=== PATIENT | female | born 1980 | race Caucasian/White ===

== ENCOUNTER 2020-02-15 08:41 | Outpatient (REF) | payer OTHER, SELFPAY | END 2020-02-15 08:42 | disposition home or self-care (01) | LOC: HO.LAB 08:41 | PROVIDERS: PCP Internal Medicine; Visit Provider Internal Medicine | DX: Z20.828 Contact with and (suspected) exposure to other viral communicable diseases (principal) | CPT/HCPCS: C9803; U0003 ==

== ENCOUNTER → 2022-03-18 10:08 | Outpatient (BNVA) | payer OTHER, SELFPAY | PROVIDERS: Visit Provider Nurse Practitioner Family | DX: G43.909 Migraine, unspecified, not intractable, without status migrainosus (principal); H53.129 Transient visual loss, unspecified eye; R41.3 Other amnesia; R42 Dizziness and giddiness | CPT/HCPCS: 99202 ==

== ENCOUNTER → 2022-06-20 11:01 | Outpatient (BNVA) | payer SELFPAY | PROVIDERS: Visit Provider Nurse Practitioner Family | DX: G43.909 Migraine, unspecified, not intractable, without status migrainosus (principal); H53.129 Transient visual loss, unspecified eye | CPT/HCPCS: 99212 ==

== ENCOUNTER 2022-11-13 11:34 | Outpatient (AMB) | payer SELFPAY ==
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
[2022-11-13 11:46] VITALS: BP 120/80; PULSE 88; O2SAT 98; BMI 37.1
== END 2022-11-13 12:35 | disposition home or self-care (01) ==
PROVIDERS: Visit Provider Nurse Practitioner Family
DX: R25.2 Cramp and spasm (principal); R45.1 Restlessness and agitation; G43.909 Migraine, unspecified, not intractable, without status migrainosus
CPT/HCPCS: 99214

== ENCOUNTER → 2022-11-13 11:34 | Outpatient (BNVA) | payer OTHER, SELFPAY | PROVIDERS: Visit Provider Nurse Practitioner Family ==

== ENCOUNTER 2022-12-27 09:27 | Outpatient (REF) | payer OTHER, SELFPAY ==
--- NOTE | 2022-12-27 09:31 | EMG_ITS ---
Chief complaint: Leg cramps Reason for referral: Evaluate for neuropathy versus radiculopathy Referred by: Rayne Villafana NP Procedure done: Bilateral lower extremity NCS/EMG Precautions and/or limitations: None The limb temperature was monitored continuously and remained between 32-36 degrees C during the performance of the NCS. FINDINGS: All motor and sensory nerves tested showed normal latencies, amplitudes and conduction velocities. Concentric needle EMG was performed in selected muscles of the bilateral lower extremity. Study did not reveal signs of electric abnormalities as shown in the table below. Nerve Conduction Studies Anti Sensory Summary Table ?Stim Site NR Onset (ms) Norm Onset (ms) Peak (ms) Norm Peak (ms) O-P Amp (?V) Norm O-P Amp Site1 Site2 Delta-0 (ms) Dist (cm) Audi (m/s) Norm Audi (m/s) Left Sural Anti Sensory (Lat Mall) Calf ? 2.6 3.0 <4.0 5.1 >5.0 Calf Lat Mall 2.6 14.0 54 Right Sural Anti Sensory (Lat Mall) Calf ? 2.6 3.1 <4.0 11.5 >5.0 Calf Lat Mall 2.6 14.0 54 Motor Summary Table ?Stim Site NR Onset (ms) Norm Onset (ms) O-P Amp (mV) Norm O-P Amp iAmp (mV) Amp (1st) (%) Site1 Site2 Delta-0 (ms) Dist (cm) Audi (m/s) Norm Audi (m/s) Left Peroneal Motor (Ext Dig Brev) Ankle ? 4.0 <4.0 5.2 >2.5 7.1 100.0 Ankle Ext Dig Brev 4.0 0.0 B Fib ? 10.7 4.9 6.7 94.2 B Fib Ankle 6.7 35.0 52 >40 Poplt ? 11.0 4.9 6.6 94.2 Poplt B Fib 0.3 4.0 133 >40 Right Peroneal Motor (Ext Dig Brev) Ankle ? 3.8 <4.0 4.1 >2.5 4.8 100.0 Ankle Ext Dig Brev 3.8 0.0 B Fib ? 10.3 3.6 4.3 87.8 B Fib Ankle 6.5 34.0 52 >40 Poplt ? 11.0 3.7 4.4 90.2 Poplt B Fib 0.7 4.0 57 >40 Left Tibial Motor (Abd Iyer Brev) Ankle ? 4.9 <5 6.5 >2.5 9.0 100.0 Ankle Abd Iyer Brev 4.9 0.0 Knee ? 10.6 2.9 4.3 44.6 Knee Ankle 5.7 37.0 65 >40 Right Tibial Motor (Abd Iyer Brev) Ankle ? 4.8 <5 8.8 >2.5 11.5 100.0 Ankle Abd Iyer Brev 4.8 0.0 Knee ? 12.3 4.5 6.1 51.1 Knee Ankle 7.5 32.0 43 >40 EMG ?Side Muscle Nerve Root Ins Act Fibs Psw Amp Dur Poly Recrt Int Pat Comment Right AbdHallucis MedPlantar S1-2 Nml Nml Nml Nml Nml 0 Nml Complete Right AntTibialis Dp Br Peron L4-5 Nml Nml Nml Nml Nml 0 Nml Complete Right PostTibialis Tibial L5, S1 Nml Nml Nml Nml Nml 0 Nml Complete Right MedGastroc Tibial S1-2 Nml Nml Nml Nml Nml 0 Nml Complete Right VastusMed Femoral L2-4 Nml Nml Nml Nml Nml 0 Nml Complete Left AbdHallucis MedPlantar S1-2 Nml Nml Nml Nml Nml 0 Nml Complete Left AntTibialis Dp Br Peron L4-5 Nml Nml Nml Nml Nml 0 Nml Complete Left PostTibialis Tibial L5, S1 Nml Nml Nml Nml Nml 0 Nml Complete Left MedGastroc Tibial S1-2 Nml Nml Nml Nml Nml 0 Nml Complete Left VastusMed Femoral L2-4 Nml Nml Nml Nml Nml 0 Nml Complete IMPRESSION: 1. This is a normal study. 2. There is no electrodiagnostic evidence for peroneal neuropathy, tibial neuropathy, lumbosacral plexopathy, lumbar radiculopathy, or peripheral neuropathy. Thank you for your kind referral. Moraima Rojas MD, CARIN Board Certified, [place] [employer] and Rehabilitation (ABPMR) Board Certified, [place] Board [employer] Electrodiagnostic Medicine (ABEM) CODIN 79008 x2 MTDD
== END 2022-12-27 09:28 | disposition home or self-care (01) ==
LOC: HO.NEURO 09:27
PROVIDERS: PCP Internal Medicine; Visit Provider Nurse Practitioner Family
DX: R25.2 Cramp and spasm (principal); R45.1 Restlessness and agitation
CPT/HCPCS: 95886; 95909

== ENCOUNTER → 2022-12-27 09:31 | Outpatient (BNV) | payer SELFPAY | PROVIDERS: PCP Internal Medicine; Visit Provider Physical Medicine & Rehabilitation | DX: R25.2 Cramp and spasm (principal) | CPT/HCPCS: 95886; 95909 ==

== ENCOUNTER → 2023-01-21 13:03 | Outpatient (BNVA) | payer SELFPAY | PROVIDERS: PCP Internal Medicine; Visit Provider Nurse Practitioner Family ==

== ENCOUNTER 2023-04-17 10:39 | Outpatient (AMB) | payer OTHER, SELFPAY ==
[2023-04-17 11:07] VITALS: PULSE 80; O2SAT 98; BMI 37.4
--- NOTE | 2023-04-17 11:07 | A.OFFVIS_ITS ---
Intake Vital Signs 04/17/23 11:07 Height 5 ft 7 in Weight 239 lb BMI 37.4 Pulse 80 Pulse Source Pulse Oximeter Pulse Oximetry (%) 98 Oxygen Delivery Method Room Air Intake Visit Reasons: Follow up-Conf Intake Note: Patient presents for follow up. Allergies onion Allergy (Severe, Verified 04/17/23 11:18) Anaphylaxis animal dander Allergy (Mild, Verified 04/17/23 11:18) Watery Eye house dust Allergy (Mild, Verified 04/17/23 11:18) Sneezing Medication List - Last Reconciled 04/17/23 by MAHIN Harrell cetirizine (Allergy Relief (cetirizine)) 10 mg PO DAILY PRN diclofenac sodium 3% 1 appl topical BID PRN 30 days eletriptan take 1 tab at onset of headache; if no relief, may repeat 1 tab after at least 2 hrs; max = 2 tabs/24 hrs orally PRN; 30 days epinephrine 0.3 mg IM Q4H PRN galcanezumab-gnlm (Emgality Pen) 120 mg subcut ONCE 30 days magnesium gluconate 30 mg PO DAILY 30 days wtxtfodaopzh-vhur-pnktd acid 18-400 mg-mcg (Centrum Women) 1 tab PO DAILY rizatriptan 5 - 10 mg (0.5 - 1 x 10 mg) PO Q2H PRN 21 days sumatriptan succinate 50 - 100 mg orally at onset of headache, may repeat in 2 hrs PRN; max 2 tabs per day or 4 tabs/week (may take with Naproxen or Ibuprofen) 60 days HPI HPI Comments History of Present Illness Details 43-yr-old female presents for f/u visit of migraine. Since fito last visit, we started pt on Emgality, which had been effective. However, recently pt had a COVID-19 infection, her only symptoms were a more atypical bothersome headache. Since, she has very tired and exhausted. She has been having daily migraine, worse in the afternnon. The migraine causes her to miss work and not be able to take care of or drive her 5 yr-old to school. She asks for her 's [place] paperwork to be updated to reflect her increased migraine attack frequency. She does not have any rizatriptan at this time, states pharmacy was requesting higher than usual co-pay. Rizatriptan helps to take the edge off, but does not fully ursula migraine. Baseline headache characteristics: Severe, Holocranial throbbing, needle stabbing headache a/w bilateral vision goes black (At onset of headache), photophobia, phonophobia, nausea, rarely vomiting, holocranial allodynia, fatigue, brain fog, not right in space dizziness. No autonomic, paresthesias, or focal weakness. PFSH Family History Mother Hypertension Asthma Diabetes Father Diabetes Hypertension Sister Hypertension Alcoholism Depression Asthma Memory loss Anemia Unknown Breast cancer Unknown Breast cancer Social History Alcohol intake: never Patient Tobacco Use Status: Never used Tobacco Physical Exam Vital Signs: Last Vital Signs Pulse 80 04/17/23 11:07 Pulse Ox 98 04/17/23 11:07 Oxygen Delivery Method Room Air 04/17/23 11:07 BMI result Body Mass Index 37.4 Const General: cooperative and no acute distress Orientation/consciousness: patient oriented x3 Resp Effort & Inspection: normal respiratory effort and able to speak in complete sentences Neuro General: patient oriented x3 Cranial nerves: Yes CN's II-XII intact bilaterally Cognition (Neuro): normal cognition Psych Appearance: grossly normal Mental Status: mental status grossly normal Speech and movement: Normal speech and movement present Affect: normal affect Attitude: cooperative Assessment & Plan Assessment & Plan (1) Migraine with aura: Comment: vision loss Code(s): G43.109 - Migraine with aura, not intractable, without status migrainosus (2) Transient visual loss: Code(s): H53.129 - Transient visual loss, unspecified eye Plan [facility] paperwork completed. For acute headache treatment: Strat Prednisone taper, taken w/ food in am. w/ Omeprazole 20mg qd. Continue Rizatriptan prn. Trial Nurtec ODT 75mg qd prn, as Rizatriptan is not fully effective. Previous acute migraine medication trials: Advil and low-dose Sumatriptan- not full effective. Acute migraine medication contraindications: None at this time ? For headache prevention medication: Continue Emgality 120mg sc q month. Previous migraine prevention medication trials: Amitriptyline- not tolerated. Topiramate- not tolerated. Mag Ox- caused constipation. B2- not effective. Propranolol 10mg bid- ineffective Migraine prevention medication contraindications: None at this time. For BLE L >R restlessness, cramps/spasms which are worse at rest, especially at night: Magnesium gluconate 550mg qhs. May use melatonin prn Reviewed BLE EMG/NCS- normal Future considerations- sleep study to assess for PLMS. ? Follow-up in 3 months or sooner prn. Medications: New prednisone 6 tabs x's 3 days, 5 tabs x's 3 days, 4 tabs x's 3 days, 3 tabs x's 3 days, 2 tabs x's 3 days, 1 tab x's 3 days, then stop. orally daily; 21 days 63 tabs 0RF omeprazole 20 mg PO DAILY 30 days 30 caps 1RF rimegepant (Nurtec ODT) 1 tab placed under tongue at onset of migraine, max 1 tab per day 75 mg PO ONCE 30 days PRN 16 tabs 3RF migraine headache MDD 1 tab Refilled rizatriptan max 2 tabs per day or 4 tabs per week 5 - 10 mg (0.5 - 1 x 10 mg) PO Q2H 21 days PRN 12 tabs 3RF migraine headache Discontinued sumatriptan succinate Discontinued Reason: Doctor's Order (0.5 - 1 x 100 mg) 50 - 100 mg orally at onset of headache, may repeat in 2 hrs PRN; max 2 tabs per day or 4 tabs/week (may take with Naproxen or Ibuprofen) 60 days 60 tabs 6RF migraine headache eletriptan Discontinued Reason: Doctor's Order take 1 tab at onset of headache; if no relief, may repeat 1 tab after at least 2 hrs; max = 2 tabs/24 hrs orally PRN; 30 days 12 tabs 3RF migraine headache Coding Level of Care Code Est Pt Level 4 (90410) Diagnoses Migraine with aura G43.109 Transient visual loss H53.129
== END 2023-04-17 11:57 | disposition home or self-care (01) ==
PROVIDERS: PCP Internal Medicine; Visit Provider Nurse Practitioner Family
DX: G43.109 Migraine with aura, not intractable, without status migrainosus (principal); H53.129 Transient visual loss, unspecified eye
CPT/HCPCS: 99214

== ENCOUNTER → 2023-04-17 10:39 | Outpatient (BNVA) | payer OTHER, SELFPAY | PROVIDERS: PCP Internal Medicine; Visit Provider Nurse Practitioner Family ==

== ENCOUNTER 2023-05-29 10:25 | Outpatient (AMB) | payer OTHER, SELFPAY ==
--- NOTE | 2023-05-29 10:26 | A.OFFVIS_ITS ---
Intake Vital Signs 05/29/23 10:31 Height 5 ft 7 in Weight 239 lb BMI 37.4 BP 112/80 Blood Pressure Location Rt brachial Position Sitting Pulse 95 Pulse Source Pulse Oximeter Pulse Oximetry (%) 100 Oxygen Delivery Method Room Air Intake Visit Reasons: Follow Up Intake Note: Patient presents for follow up. migraines still happening I couldn't wait for August visit to see her again Allergies onion Allergy (Severe, Verified 05/29/23 10:34) Anaphylaxis animal dander Allergy (Mild, Verified 05/29/23 10:34) Watery Eye house dust Allergy (Mild, Verified 05/29/23 10:34) Sneezing Medication List - Last Reconciled 05/29/23 by MAHIN Harrell cetirizine (Allergy Relief (cetirizine)) 10 mg PO DAILY PRN diclofenac sodium 3% 1 appl topical BID PRN 30 days epinephrine 0.3 mg IM Q4H PRN galcanezumab-gnlm (Emgality Pen) 120 mg subcut ONCE 30 days magnesium gluconate 30 mg PO DAILY 30 days akgozauontfn-juks-uuoqo acid 18-400 mg-mcg (Centrum Women) 1 tab PO DAILY omeprazole 20 mg PO DAILY 30 days prednisone 6 tabs x's 3 days, 5 tabs x's 3 days, 4 tabs x's 3 days, 3 tabs x's 3 days, 2 tabs x's 3 days, 1 tab x's 3 days, then stop. orally daily; 21 days rimegepant (Nurtec ODT) 75 mg PO ONCE PRN 30 days MDD 1 tab rizatriptan 5 - 10 mg (0.5 - 1 x 10 mg) PO Q2H PRN 21 days HPI HPI Comments History of Present Illness Details 43-yr-old female presents for f/u visit. Pt denies any significant interval medical changes. She has had a daily headache x's the past 2 weeks. This is similar to the headache she was experiencing after the Covid-19 infection in Mar, but is now worse. She is feeling a right ear constant pulsation. Initially this was not painful, but not the pulsation has become throbbing pain in the right lateral occipital post-auricular region. A/w increased nausea and fatigue. Right lateral head tilt does suppress the ear pulsations. Pressing on the right occipital/posterior auricular region temporarily alleviates the pain. Wearing her hair down- causes the pounding pain to worsen. She has tried all of her migraine meds- Rizatriptan, Eletriptan, Nurtec, Ibuprofen did not help. She has been having new horizontal diplopia She has not noticed any visual acuity changes, dizziness in between migraine attacks. Denies recent weight gain. No change in meds, diet, exercise. Yesterday, she had her typical migraine on top of this other new headache. She did use a melatonin to make herself sleep. She is overdue for the Emgality- was due on 05/21- but there is an issue at the pharmacy using her co-pay access card. Baseline migraine headache characteristics: Severe, Holocranial throbbing, needle stabbing headache a/w bilateral vision goes black (At onset of headache), photophobia, phonophobia, nausea, rarely vomiting, holocranial allodynia, fatigue, brain fog, not right in space dizziness. No autonomic, paresthesias, or focal weakness. PFSH Family History Mother Hypertension Asthma Diabetes Father Diabetes Hypertension Sister Hypertension Alcoholism Depression Asthma Memory loss Anemia Unknown Breast cancer Unknown Breast cancer Social History Alcohol intake: never Patient Tobacco Use Status: Never used Tobacco Physical Exam Vital Signs: Last Vital Signs Pulse 95 05/29/23 10:31 BP 112/80 05/29/23 10:31 Pulse Ox 100 05/29/23 10:31 Oxygen Delivery Method Room Air 05/29/23 10:31 BMI result Body Mass Index 37.4 Const General: cooperative and no acute distress Orientation/consciousness: patient oriented x3 Resp Effort & Inspection: normal respiratory effort and able to speak in complete sentences Neuro Other: Palpable tenderness over entire right side of head and neck. Right Ear tug/pull does not change pain or tinnitus. Bilateral posterior and dlateral cervical tightness- note this is not significantly worse on right. CN II-XII intcat, w/ exception of horizontal diplopia elicited in bilateral lateral visual field. EOM elicits eye discomfort. 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 Eye exam-normal As pt is having new severe headache type and location (right post-auricular na doccipital) a/w pulsating tinnitus, diplopia, allodynia insetting of known intracranial bilateral transverse pacchionian granulations, pt is advised to undergo: F/u brain MRI and MRV w/wo LP for OP and CSF studies- after MRI completed- reviewed post-LP care- rest, fluids, caffeine, prn Fioricet. Check labs. Future considerations- Head/neck CTA For now- start Acetazolamide 125-250mg tid- pt to update us w/ any change in LINN or s/e's. For acute headache treatment: May use Sumatriptan 100mg prn for now- as pt has run out of current abortive tx. Continue Rizatriptan prn. Continue Nurtec ODT 75mg qd prn- which is effective for migraine. Previous acute migraine medication trials: Advil and low-dose Sumatriptan- not full effective. Acute migraine medication contraindications: None at this time ? For headache prevention medication: Continue Emgality 120mg sc q month. Previous migraine prevention medication trials: Amitriptyline- not tolerated. Topiramate- not tolerated. Mag Ox- caused constipation. B2- not effective. Propranolol 10mg bid- ineffective Migraine prevention medication contraindications: None at this time. ? For BLE L >R restlessness, cramps/spasms which are worse at rest, especially at night: Magnesium gluconate 550mg qhs. May use melatonin prn Reviewed BLE EMG/NCS- normal Future considerations- sleep study to assess for PLMS. ? Follow-up in 3 months or sooner prn. Orders: Orders FL guided lumbar puncture LP Today H53.2 - Diplopia, H93.19 - Tinnitus, unspecified ear, I87.1 - Compression of vein, R51.9 - Headache, unspecified Comprehensive Met. Panel Today H53.2 - Diplopia, H93.19 - Tinnitus, unspecified ear, I87.1 - Compression of vein, R25.2 - Cramp and spasm, R51.9 - Headache, unspecified Complete Blood Count Auto Diff Today H53.2 - Diplopia, H93.19 - Tinnitus, unspecified ear, I87.1 - Compression of vein, R25.2 - Cramp and spasm, R51.9 - Headache, unspecified Erythrocyte Sedimentation Rate Today H53.2 - Diplopia, H93.19 - Tinnitus, unspecified ear, I87.1 - Compression of vein, R25.2 - Cramp and spasm, R51.9 - Headache, unspecified Rheumatoid Factor Today H53.2 - Diplopia, H93.19 - Tinnitus, unspecified ear, I87.1 - Compression of vein, R25.2 - Cramp and spasm, R51.9 - Headache, unspecified Vitamin B12 and Folate Today H53.2 - Diplopia, H93.19 - Tinnitus, unspecified ear, I87.1 - Compression of vein, R25.2 - Cramp and spasm, R51.9 - Headache, unspecified TSH reflex Free T4 Today H53.2 - Diplopia, R51.9 - Headache, unspecified, R53.83 - Other fatigue CSF Culture + Gram stain Today H53.2 - Diplopia, H93.19 - Tinnitus, unspecified ear, R51.9 - Headache, unspecified, R53.83 - Other fatigue CSF Glucose Today H53.2 - Diplopia, H93.19 - Tinnitus, unspecified ear, R51.9 - Headache, unspecified, R53.83 - Other fatigue Meningitis/Enceph Panel CSF Today H53.2 - Diplopia, H93.19 - Tinnitus, unspecified ear, R51.9 - Headache, unspecified, R53.83 - Other fatigue VDRL Qualitative CSF Today H53.2 - Diplopia, H93.19 - Tinnitus, unspecified ear, R51.9 - Headache, unspecified, R53.83 - Other fatigue MR head/brain wo/w con Today H53.2 - Diplopia, H93.19 - Tinnitus, unspecified ear, I87.1 - Compression of vein, R51.9 - Headache, unspecified MR venography head wo/w con Today H53.2 - Diplopia, H93.19 - Tinnitus, unspecified ear, I87.1 - Compression of vein, R51.9 - Headache, unspecified CRP High Sensitivity Today H53.2 - Diplopia, H93.19 - Tinnitus, unspecified ear, I87.1 - Compression of vein, R25.2 - Cramp and spasm, R51.9 - Headache, unspecified Lyme IgG/IgM w/reflex to WB Today H53.2 - Diplopia, H93.19 - Tinnitus, unspecified ear, I87.1 - Compression of vein, R25.2 - Cramp and spasm, R51.9 - Headache, unspecified BRENNA Reflex Titer and Pattern Today H53.2 - Diplopia, H93.19 - Tinnitus, unspecified ear, I87.1 - Compression of vein, R25.2 - Cramp and spasm, R51.9 - Headache, unspecified CSF Cell Count w Diff Today H53.2 - Diplopia, H93.19 - Tinnitus, unspecified ear, R51.9 - Headache, unspecified, R53.83 - Other fatigue CSF Cell Ct w Diff X2 Today H53.2 - Diplopia, H93.19 - Tinnitus, unspecified ear, R51.9 - Headache, unspecified, R53.83 - Other fatigue CSF Total Protein Today H53.2 - Diplopia, H93.19 - Tinnitus, unspecified ear, R51.9 - Headache, unspecified, R53.83 - Other fatigue IgG Index CSF Today H53.2 - Diplopia, H93.19 - Tinnitus, unspecified ear, R51.9 - Headache, unspecified, R53.83 - Other fatigue Lyme by PCR for CSF Today H53.2 - Diplopia, H93.19 - Tinnitus, unspecified ear, R51.9 - Headache, unspecified, R53.83 - Other fatigue Medications: New acetazolamide 125 - 250 mg (1 - 2 x 125 mg) PO TID 7 days 63 tabs 0RF sumatriptan succinate (0.5 - 1 x 100 mg) 50 - 100 mg orally at onset of headache, may repeat in 2 hrs PRN; max 2 tabs per day. 30 days 30 tabs 0RF migraine headache baclofen 10 - 20 mg (1 - 2 x 10 mg) PO BEDTIME 30 days 60 tabs 1RF cnaxtcisyx-knpclmydpdnhi-vwrv 50-325-40 mg max 4 tabs per day (do not take w/ Nurtec) 1 tab PO Q4H PRN 28 tabs 0RF post- LP headache 7 days Discontinued prednisone Discontinued Reason: Patient Completed Course 6 tabs x's 3 days, 5 tabs x's 3 days, 4 tabs x's 3 days, 3 tabs x's 3 days, 2 tabs x's 3 days, 1 tab x's 3 days, then stop. orally daily; 21 days 63 tabs 0RF Coding Level of Care Code Est Pt Level 4 (43013) Diagnoses Tinnitus H93.19 New onset headache R51.9 Diplopia H53.2 Vein stenosis I87.1 Fatigue R53.83
[2023-05-29 10:31] VITALS: BP 112/80; PULSE 95; O2SAT 100; BMI 37.4
== END 2023-05-29 11:38 | disposition home or self-care (01) ==
PROVIDERS: PCP Internal Medicine; Visit Provider Nurse Practitioner Family
DX: H93.19 Tinnitus, unspecified ear (principal); R51.9 Headache, unspecified; H53.2 Diplopia; I87.1 Compression of vein; R53.83 Other fatigue
CPT/HCPCS: 99214

== ENCOUNTER → 2023-05-29 10:25 | Outpatient (BNVA) | payer OTHER, SELFPAY | PROVIDERS: PCP Internal Medicine; Visit Provider Nurse Practitioner Family ==

== ENCOUNTER 2023-05-29 11:40 | Outpatient (REF) | payer OTHER, SELFPAY ==
[2023-05-29 17:24] LABS: MANUAL DIFF FLAG NO
[2023-05-29 17:28] LABS: Basophils Percent Auto 0.8 % (0-2); Eosinophils Percent Auto 0.4 % (0-4); Hematocrit 36.2 % (37.0-47.0); Hemoglobin 12.6 g/dl (12.0-16.0); Imm Gran Abs Auto 0.01 X10*3/uL (0.00-0.03); Imm Gran Pct Auto 0.2 % (0.0-0.4); Lymphocytes Percent Auto 20.7 % (20-40); Mean Corpuscular HGB Conc 34.8 g/dl (31.0-35.0); Mean Corpuscular Hemoglobin 29.9 pg (27.0-33.0); Mean Corpuscular Volume 85.8 fL (80.0-98.0); Mean Platelet Volume 9.5 fL (9.4-12.3); Monocytes Absolute Auto 0.5 X10*3/uL (0.1-1.2); Monocytes Percent Auto 10.2 % (2-11); Neutrophils Absolute Auto 3.3 x10*3/uL (2.0-8.3); Neutrophils Percent Auto 67.7 % (45-73); Platelet Count 340 X10*3/uL (160-400); Red Blood Count 4.22 X10*6/uL (4.20-5.50); Red Cell Distribution Width 13.1 % (11.0-16.0); White Blood Count 4.9 X10*3/uL (4.8-10.8)
[2023-05-29 17:45] LABS: Rheumatoid Factor < 13.0 IU/mL (<15.0)
[2023-05-29 17:50] LABS: Alanine Aminotransferase 14 U/L (0-31); Alkaline Phosphatase 79 U/L (39-117); Anion Gap 11 (12-20); Aspartate Amino Transferase 18 U/L (5-31); Bilirubin Total 0.3 mg/dL (0.0-1.0); Blood Urea Nitrogen 11 mg/dL (9-16); Calcium 8.8 mg/dL (8.4-10.2); Carbon Dioxide 26 mmol/L (22-29); Chloride 104 mmol/L (96-108); Estimated Glomerular Filt Rate > 60; Glucose Random 82 mg/dL (60-115); Potassium 3.5 mmol/L (3.3-5.1); Sodium 137 mmol/L (135-145); Total Protein 7.8 g/dL (6.5-8.0)
[2023-05-29 18:03] LABS: TSH reflex Free T4 0.35 uIU/mL (0.32-4.0)
[2023-05-29 18:14] LABS: Folate 14.6 ng/mL (> or = 4.0); Vitamin B12 437 pg/mL (200-900)
[2023-05-29 18:15] LABS: Erythrocyte Sedimentation Rate 23 MM/HR (0-20)
[2023-05-30 13:03] LABS: Lyme Abs Screen <0.90 index
[2023-05-30 13:48] LABS: CRP High Sensitivity >10.0 mg/L
[2023-06-03 15:13] LABS: Anti Nuclear Antibody Pattern Nuclear, Speckled; Anti Nuclear Antibody Screen POSITIVE (NEGATIVE)
== END 2023-05-29 11:41 | disposition home or self-care (01) ==
LOC: HO.HKASLDS 11:40
PROVIDERS: Visit Provider Nurse Practitioner Family
DX: R51.9 Headache, unspecified (principal); H53.2 Diplopia; H93.19 Tinnitus, unspecified ear; I87.1 Compression of vein; R25.2 Cramp and spasm; R53.83 Other fatigue
CPT/HCPCS: 36415; 80053; 82607; 82746; 84443; 85025; 85652; 86038; 86039; 86141; 86431; 86617; 86618

== ENCOUNTER 2023-06-03 14:36 | Outpatient (AMB) | payer OTHER, SELFPAY ==
--- NOTE | 2023-06-03 14:50 | MHC.OFFVIS ---
Intake Vital Signs 06/03/23 14:51 Height 5 ft 7 in Weight 239 lb BMI 37.4 BP 112/66 Blood Pressure Location Rt brachial Position Sitting Respiration 17 Pulse 89 Pulse Source Pulse Oximeter Pulse Oximetry (%) 98 Oxygen Delivery Method Room Air Intake Visit Reasons: ER follow up Intake Note: Pt presents for a hospital follow up. Pt states she went into [facility] ED on Friday, with c/o headache, blurry vision, dizziness, fatigue and syncope. The kept her for a 24 hour observation. They performed lab results and an MRI that showed some fluid but not enough for a spine tap . 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 Allergies onion Allergy (Severe, Verified 06/03/23 14:50) Anaphylaxis animal dander Allergy (Mild, Verified 06/03/23 14:50) Watery Eye house dust Allergy (Mild, Verified 06/03/23 14:50) Sneezing Medication List - Last Reconciled 06/03/23 by Mariluz Raymond MD acetazolamide 125 - 250 mg (1 - 2 x 125 mg) PO TID 7 days baclofen 10 - 20 mg (1 - 2 x 10 mg) PO BEDTIME 30 days niqhjzijwm-zkewgrfdotzgc-aquj 50-325-40 mg 1 tab PO Q4H PRN 7 days cetirizine (Allergy Relief (cetirizine)) 10 mg PO DAILY PRN diclofenac sodium 3% 1 appl topical BID PRN 30 days epinephrine 0.3 mg IM Q4H PRN magnesium gluconate 30 mg PO DAILY 30 days ggxpwfnfmwgc-avyw-sfhno acid 18-400 mg-mcg (Centrum Women) 1 tab PO DAILY omeprazole 20 mg PO DAILY 30 days omeprazole magnesium (Prilosec OTC) 40 mg (2 x 20 mg) PO DAILY prednisone 10 mg PO DIRECTED rimegepant (Nurtec ODT) 75 mg PO ONCE PRN 30 days MDD 1 tab rizatriptan 5 - 10 mg (0.5 - 1 x 10 mg) PO Q2H PRN 21 days sumatriptan succinate 50 - 100 mg orally at onset of headache, may repeat in 2 hrs PRN; max 2 tabs per day. 30 days HPI HPI Comments History of Present Illness Details 43-yr-old female presents for urgent f/u visit. she reports a right postauricular pain Jan 2023 which increased after she had Covid in Mar 2023. she says these headaches are different than her usual migraines.They start as a throbbing pain behind her right ear and resolves when she applies pressure. she has photophobia, nausea. she has blurred vision during these headaches . In Jan 2023 these headaches lasted 1 week and after that she had a milder right ear throbbing.SHe had mild COVID In Mar 2023 and since then her right sided throbbing and head pressure have increased along with generalized weakness, blurred vision, feels her right side of her body is weak she missed her last dose of Emgality due on May 21 due to some insurance issues. she went to [facility]- had CTA MRI MRV CT c spine L spine T spine - unremrakable - which were all normal and her headaches were treated with oxycodone. SHe had a near syncope in the ER - says she was made to sit up quickly from supine position. she was dehydrated at that point as well. she denies ear pain but reports a constant throbbing pain in the Right post auricular region. Her double vision is better but she reports blurred vision Baseline migraine headache characteristics: Severe, Holocranial throbbing, needle stabbing headache a/w bilateral vision goes black (At onset of headache), photophobia, phonophobia, nausea, rarely vomiting, holocranial allodynia, fatigue, brain fog, not right in space dizziness. No autonomic, paresthesias, or focal weakness. [facility] Medical History (Updated 06/03/23 @ 15:44 by Mariluz Raymond MD) Pain of postauricular region Family History Mother Hypertension Asthma Diabetes Father Diabetes Hypertension Sister Hypertension Alcoholism Depression Asthma Memory loss Anemia Unknown Breast cancer Unknown Breast cancer Social History Alcohol intake: never Patient Tobacco Use Status: Never used Tobacco Physical Exam Vital Signs: Last Vital Signs Pulse 89 06/03/23 14:51 Resp 17 06/03/23 14:51 BP 112/66 06/03/23 14:51 Pulse Ox 98 06/03/23 14:51 Oxygen Delivery Method Room Air 06/03/23 14:51 BMI result Body Mass Index 37.4 Const General: cooperative and no acute distress Orientation/consciousness: patient oriented x3 Resp Effort & Inspection: normal respiratory effort and able to speak in complete sentences Neuro Other: Palpable tenderness over right mastoid and surround area. No tenderness in right external ear . Right Ear tug/pull does not change pain or tinnitus. Bilateral posterior and dlateral cervical tightness- note this is not significantly worse on right. CN II-XII intcat, w/ exception of horizontal diplopia elicited in bilateral lateral visual field. EOM elicits eye discomfort. General: patient oriented x3 Cognition (Neuro): normal cognition Psych Appearance: grossly normal Mental Status: mental status grossly normal Speech and movement: Normal speech and movement present Affect: normal affect Attitude: cooperative Assessment & Plan Assessment & Plan (1) Pain of postauricular region: Comment: with severe tenderness in right mastoid and fito surrounding area. No fluid levels or evidence of inflammation seen on MRI ? mastoiditis , post viral inflammation ? otitis Code(s): R51.9 - Headache, unspecified (2) Migraine with aura: Comment: vision loss Code(s): G43.109 - Migraine with aura, not intractable, without status migrainosus Plan Reviewed work-up from [facility] Unremarkable CTA braina nd neck MRI - mild nonspecific white matter changes CT C spine L spine T spine unremarkable MRV- normal : Her ESR was mildly elevated to 23 . WBC was normal Urgent ENT referral I will trial her on a tapering course of prednisone starting at 80mg qd for 2 days and tapering it by 1 tab every 2 days Prilosec 40mg qd side effects discussed. Continue other medications. Orders: Referrals Ear/Nose/Throat Referral R51.9 - Headache, unspecified Medications: New prednisone 8tabs per day X 2 day and then decrease by 1 tab every 2 days 10 mg PO DIRECTED 70 tabs 0RF omeprazole magnesium (Prilosec OTC) 40 mg (2 x 20 mg) PO DAILY 60 tabs 0RF Discontinued galcanezumab-gnlm (Emgality Pen) Discontinued Reason: Patient no longer taking 120 mg subcut ONCE 30 days 1 mL 6RF Coding Level of Care Code Est Pt Level 4 (01793) Diagnoses Pain of postauricular region R51.9 Migraine with aura G43.109
[2023-06-03 14:51] VITALS: BP 112/66; PULSE 89; RESP 17; O2SAT 98; BMI 37.4
== END 2023-06-03 16:03 | disposition home or self-care (01) ==
PROVIDERS: PCP Internal Medicine; Visit Provider Psychiatry & Neurology Neurology
DX: R51.9 Headache, unspecified (principal); G43.109 Migraine with aura, not intractable, without status migrainosus
CPT/HCPCS: 99214

== ENCOUNTER → 2023-06-03 14:36 | Outpatient (BNVA) | payer OTHER, SELFPAY | PROVIDERS: PCP Internal Medicine; Visit Provider Psychiatry & Neurology Neurology ==

== ENCOUNTER 2023-07-29 10:56 | Outpatient (AMB) | payer OTHER, SELFPAY ==
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
[2023-07-29 10:58] VITALS: BP 128/76; PULSE 76; O2SAT 98; BMI 37.6
== END 2023-07-29 11:43 | disposition home or self-care (01) ==
PROVIDERS: PCP Internal Medicine; Visit Provider Student in an Organized Health Care Education/Training Program
DX: R76.8 Other specified abnormal immunological findings in serum (principal)
CPT/HCPCS: 99204

== ENCOUNTER 2023-07-29 10:56 | Outpatient (REF) | payer OTHER, SELFPAY ==
[2023-07-29 12:16] LABS: MANUAL DIFF FLAG NO
[2023-07-29 12:32] LABS: Basophils Absolute Auto 0.1 X10*3/uL (0.0-0.2); Basophils Percent Auto 0.7 % (0-2); Eosinophils Absolute Auto 0.1 X10*3/uL (0.0-0.4); Eosinophils Percent Auto 0.7 % (0-4); Hematocrit 36.8 % (37.0-47.0); Hemoglobin 12.6 g/dl (12.0-16.0); Imm Gran Abs Auto 0.02 X10*3/uL (0.00-0.03); Imm Gran Pct Auto 0.3 % (0.0-0.4); Lymphocytes Absolute Auto 1.5 X10*3/uL (1.2-4.9); Lymphocytes Percent Auto 20.5 % (20-40); Mean Corpuscular HGB Conc 34.2 g/dl (31.0-35.0); Mean Corpuscular Hemoglobin 29.9 pg (27.0-33.0); Mean Corpuscular Volume 87.2 fL (80.0-98.0); Mean Platelet Volume 9.2 fL (9.4-12.3); Monocytes Absolute Auto 0.7 X10*3/uL (0.1-1.2); Monocytes Percent Auto 9.2 % (2-11); Neutrophils Absolute Auto 4.9 x10*3/uL (2.0-8.3); Neutrophils Percent Auto 68.6 % (45-73); Platelet Count 389 X10*3/uL (160-400); Red Blood Count 4.22 X10*6/uL (4.20-5.50); Red Cell Distribution Width 13.8 % (11.0-16.0); White Blood Count 7.1 X10*3/uL (4.8-10.8)
[2023-07-29 12:35] LABS: Appearance Urine Clear; Color Urine Yellow; Glucose Urine UA Negative (Negative); Leukocyte Esterase Urine Negative (Negative); Nitrite Urine Negative (Negative); PH 6.5 (5.0-9.0); Specific Gravity - Urine 1.025 (1.005-1.025); UMIC TRIGGER UA YES; Urine Blood Small (1+) (Negative); Urine Ketones Negative (Negative); Urine Protein Negative (Neg-Trace)
[2023-07-29 12:40] LABS: Bacteria Urine None Seen (None Seen); Hyaline Casts Urine 0-2 /LPF (0-2); Squamous Epithelial Cell Urine 0-2 /HPF (0-2); WBC Urine 0-5 /HPF (0-5)
[2023-07-29 13:01] LABS: Alanine Aminotransferase 13 U/L (0-31); Albumin Level 4.1 g/dL (3.5-5.0); Alkaline Phosphatase 73 U/L (39-117); Anion Gap 14 (12-20); Aspartate Amino Transferase 16 U/L (5-31); Bilirubin Total 0.3 mg/dL (0.0-1.0); Blood Urea Nitrogen 14 mg/dL (9-16); C Reactive Protein 0.43 mg/dL (< or = 0.50); Calcium 9.2 mg/dL (8.4-10.2); Carbon Dioxide 20 mmol/L (22-29); Chloride 110 mmol/L (96-108); Estimated Glomerular Filt Rate > 60; Glucose Random 95 mg/dL (60-115); Potassium 3.9 mmol/L (3.3-5.1); Sodium 140 mmol/L (135-145); Total Protein 7.8 g/dL (6.5-8.0)
[2023-07-29 13:01] LABS: Protein/Creatinine Ratio, Ur 0.07 (<0.2); Total Protein Urine Random 12 mg/dL (<12)
[2023-07-29 13:11] LABS: Erythrocyte Sedimentation Rate 17 MM/HR (0-20)
[2023-07-30 08:31] LABS: HBS Num1 12.13 mIU/mL (0-7.99); HBc Num1 0.13 S/CO (0.00-0.79); HBsAGNum1 0.36 S/CO (0.00-0.99); Hepatitis A Antibody IgM 0.14 Index (0-0.79); Hepatitis B Core Antibody Nonreactive (Nonreactive); Hepatitis B Surface Antigen Negative (Negative); ~HepC Num1 0.13 S/CO (0.00-0.79); ~Hepatitis A Antibody IgM Nonreactive (Nonreactive); ~Hepatitis B Surface Antibody REACTIVE (Nonreactive); ~Hepatitis C Antibody Nonreactive (Nonreactive)
[2023-07-30 21:13] LABS: Anti DNA DS Antibody 1 IU/mL; Antibody to SS-A Antigen <1.0 NEG AI (<1.0 NEG); Antibody to SS-B Antigen <1.0 NEG AI (<1.0 NEG); Prot Elec - Albumin 4.3 g/dL (3.8-4.8); Prot Elec - Alpha1 0.3 g/dL (0.2-0.3); Prot Elec - Alpha2 0.6 g/dL (0.5-0.9); Prot Elec - Beta 1 0.5 g/dL (0.4-0.6); Prot Elec - Beta 2 0.4 g/dL (0.2-0.5); Prot Elec - Gamma 1.4 g/dL (0.8-1.7); Prot Elec - Total Protein 7.4 g/dL (6.1-8.1); SM/Ribonucleoprotein Ab <1.0 NEG AI (<1.0 NEG); Smith Protein <1.0 NEG AI (<1.0 NEG)
[2023-07-31 13:09] LABS: IgA 223 mg/dL (47-310); IgG 1621 mg/dL (600-1640); IgM 86 mg/dL (50-300)
[2023-07-31 14:54] LABS: Complement C3 68 mg/dL (83-193)
[2023-07-31 20:44] LABS: Cardiolipin IgG Ab 2.2 GPL-U/mL; Cardiolipin IgM Ab 8.2 MPL-U/mL
[2023-08-01 15:43] LABS: Cyclic Citrullinated Peptide <16 UNITS
[2023-08-03 00:29] LABS: Hexagonal Phase Neutralization Negative (Negative); PTT (LAC) Screen 43 sec (<=40)
[2023-08-05 13:47] LABS: Beta-2 Glycoprotein IgG 2.7 U/mL (<20.0)
[2023-08-05 13:58] LABS: DNAds, Crithidia Antibody Positive (Negative)
== END 2023-07-29 10:57 | disposition home or self-care (01) ==
LOC: HO.LAB 10:56
PROVIDERS: PCP Internal Medicine; Visit Provider Student in an Organized Health Care Education/Training Program
DX: Z11.59 Encounter for screening for other viral diseases (principal); M32.9 Systemic lupus erythematosus, unspecified; D68.61 Antiphospholipid syndrome; R76.8 Other specified abnormal immunological findings in serum; Z72.89 Other problems related to lifestyle
CPT/HCPCS: 36415; 80053; 81001; 82570; 82784; 84156; 84165; 85025; 85597; 85598; 85613; 85652; 85730; 86140; 86146; 86147; 86160; 86200; 86225; 86235; 86255; 86334; 86704; 86706; 86709; 86803; 87340

== ENCOUNTER 2023-09-15 09:36 | Outpatient (AMB) | payer OTHER, SELFPAY ==
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
[2023-09-15 09:42] VITALS: BP 120/74; PULSE 73; RESP 18; O2SAT 98; BMI 37.9
== END 2023-09-15 10:05 | disposition home or self-care (01) ==
PROVIDERS: PCP Internal Medicine; Visit Provider Student in an Organized Health Care Education/Training Program
DX: R76.8 Other specified abnormal immunological findings in serum (principal); Z79.899 Other long term (current) drug therapy
CPT/HCPCS: 99214

== ENCOUNTER → 2023-09-15 09:36 | Outpatient (BNVA) | payer OTHER, SELFPAY | PROVIDERS: PCP Internal Medicine; Visit Provider Student in an Organized Health Care Education/Training Program | DX: R76.8 Other specified abnormal immunological findings in serum (principal); Z79.899 Other long term (current) drug therapy | CPT/HCPCS: 99212 ==

== ENCOUNTER 2023-12-03 13:58 | Outpatient (AMB) | payer OTHER, SELFPAY ==
[2023-12-03 14:13] VITALS: BP 114/84; PULSE 78; O2SAT 98; BMI 37.7
--- NOTE | 2023-12-03 14:13 | MHC.OFFVIS ---
Vital Signs 12/03/23 14:13 Height 5 ft 7 in Weight 241 lb BMI 37.7 BP 114/84 Blood Pressure Location Rt brachial Position Sitting Pulse 78 Pulse Source Pulse Oximeter Pulse Oximetry (%) 98 Oxygen Delivery Method Room Air Intake Visit Reasons: Follow Up Intake Note: Patient presents for follow up. patient still getting headaches. Allergies onion Allergy (Severe, Verified 12/03/23 14:27) Anaphylaxis animal dander Allergy (Mild, Verified 12/03/23 14:27) Watery Eye house dust Allergy (Mild, Verified 12/03/23 14:27) Sneezing Medication List - Last Reconciled 12/03/23 by Rayne Villafana, MAHIN acetazolamide 125 - 250 mg (1 - 2 x 125 mg) PO TID 7 days cetirizine (Allergy Relief (cetirizine)) 10 mg PO DAILY PRN epinephrine 0.3 mg IM Q4H PRN famotidine 20 mg PO BID hydroxychloroquine 200 mg PO BID npqsjccwojkh-mbbe-ykooa acid 18-400 mg-mcg (Centrum Women) 1 tab PO DAILY prednisone PO PER PKG DIR rizatriptan 5 - 10 mg (0.5 - 1 x 10 mg) PO Q2H PRN 21 days sumatriptan succinate 50 - 100 mg orally at onset of headache, may repeat in 2 hrs PRN; max 2 tabs per day. 30 days HPI Comments Details: 43-yr-old female presents for f/u visit. Since the last visit, pt's lab work-up was notable for positive BRENNA, and she has had rheumatology consult, was dx'd w/ milkd lupus and started on hydroxychloroquine. Pt has not noticed much difference yet. She has not made a f/u eye appt yet. Pt reports she feels like she is retaining water, as she feels even more swollen. She is drinking 6 16 oz water bottles per day. She never feels thirsty. She generally avoids salt. She is voiding- states has over active bladder. In October, she did have an exacerbation of her headache, was given a course of prednisone which was helpful. She is now having 3 migraine days per week in the last 2 months. She is having the throbbing/pulsation right ear pain just prior to the headache. Right eye twitching, Denies tinnitus. She saw ENT- was told no ENT etiology for right pulsations, throbbing or headaches. Took Emgality x's 2-3 months, which was not effective. Sumatriptan 100mg does help if she takes it with Ibuprofen or Aleve or Tylenol- but not completely. Only receives 9 sumatriptan tabs per month. Baseline migraine headache characteristics: Severe, Holocranial throbbing, needle stabbing headache a/w bilateral vision goes black (At onset of headache), photophobia, phonophobia, nausea, rarely vomiting, holocranial allodynia, fatigue, brain fog, not right in space dizziness. No autonomic, paresthesias, or focal weakness. May 2023: [facility] work-up: CTA MRI MRV CT c spine L spine T spine - unremrakable Work-up from Mar-Apr 2022: Brain MRI w/wo which revealed scattered periventricular and deep white matter T2 FLAIR hyperintensities; expansion of the sella turcica with flattening of the pituitary gland; and potential stenoses of the lateral aspects of the transverse sinuses bilaterally. 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 Eye exam-normal [facility] Medical History Alopecia areata Rosacea Pain of postauricular region Family History Mother Hypertension Asthma Diabetes Father Diabetes Hypertension Sister Hypertension Alcoholism Depression Asthma Memory loss Anemia Unknown Breast cancer Unknown Breast cancer Social History Household Members: Children Alcohol intake: never Patient Tobacco Use Status: Never used Tobacco Physical Exam Vital Signs: Last Vital Signs Pulse 78 12/03/23 14:13 BP 114/84 12/03/23 14:13 Pulse Ox 98 12/03/23 14:13 Oxygen Delivery Method Room Air 12/03/23 14:13 BMI result Body Mass Index 37.7 Const General: cooperative and no acute distress Orientation/consciousness: patient oriented x3 Resp Effort & Inspection: normal respiratory effort and able to speak in complete sentences Neuro Other: Photophobic. General: patient oriented x3 Cranial nerves: Yes CN's II-XII intact bilaterally Cognition (Neuro): normal cognition Psych Appearance: grossly normal Mental Status: mental status grossly normal Speech and movement: Normal speech and movement present Affect: normal affect Attitude: cooperative Assessment & Plan Assessment & Plan (1) Migraine with aura: Comment: vision loss Code(s): G43.109 - Migraine with aura, not intractable, without status migrainosus Category: Medical (2) Bilateral leg cramps: Comment: ? RLS, ? neuropathy, ? musculoskeletal Code(s): R25.2 - Cramp and spasm Category: Medical (3) Positive BRENNA (antinuclear antibody): Code(s): R76.8 - Other specified abnormal immunological findings in serum Category: Medical (4) Tinnitus: Code(s): H93.19 - Tinnitus, unspecified ear Category: Medical Plan Pt advised to f/u w/ rheumatology to discuss resuming hydroxychloroquine For acute headache treatment: Continue Sumatriptan 100mg prn- will send extra order to allow pt to have access to 15 tabs per month. Start Diclofena 50mg prn. Hold Nurtec ODT 75mg qd prn- pt not taking. Previous acute migraine medication trials: Advil and low-dose Sumatriptan- not full effective. Acute migraine medication contraindications: None at this time ? For headache prevention medication: Increase Acetazolamide to 250mg tid. CBC/CMP- orders already in place. Stop Emgality- ineffective. Start Qulipta 30mg po qhs. Previous migraine prevention medication trials: Amitriptyline- not tolerated. Topiramate- not tolerated. Mag Ox- caused constipation. B2- not effective. Propranolol 10mg bid- ineffective. Emgality- ineffective. Migraine prevention medication contraindications: None at this time. ? For BLE L >R restlessness, cramps/spasms which are worse at rest, especially at night: Magnesium gluconate 550mg qhs. Melatonin prn Previous BLE EMG/NCS- normal Future considerations- sleep study to assess for PLMS. ? Follow-up in 3-6 months or sooner prn. Medications: New atogepant (Qulipta) 30 mg PO DAILY 30 tabs 6RF 30 days diclofenac potassium 50 mg PO BID PRN 30 tabs 3RF migraine headache 30 days Changed From sumatriptan succinate (0.5 - 1 x 100 mg) 50 - 100 mg orally at onset of headache, may repeat in 2 hrs PRN; max 2 tabs per day. 30 days 30 tabs 0RF migraine headache To sumatriptan succinate 50 - 100 mg orally at onset of headache, may repeat in 2 hrs PRN; max 2 tabs per day. 15 tabs 1RF migraine headache 30 days From acetazolamide 125 - 250 mg (1 - 2 x 125 mg) PO TID 7 days 63 tabs 0RF To acetazolamide 250 mg (2 x 125 mg) PO TID 180 tabs 1RF 30 days Discontinued prednisone Discontinued Reason: Doctor's Order PO PER PKG DIR 21 ea 0RF Coding Level of Care Code Est Pt Level 4 (15322) Diagnoses Migraine with aura G43.109 Bilateral leg cramps R25.2 Positive BRENNA (antinuclear antibody) R76.8 Tinnitus H93.19
== END 2023-12-03 15:29 | disposition home or self-care (01) ==
PROVIDERS: PCP Internal Medicine; Visit Provider Nurse Practitioner Family
DX: G43.109 Migraine with aura, not intractable, without status migrainosus (principal); R25.2 Cramp and spasm; R76.8 Other specified abnormal immunological findings in serum; H93.19 Tinnitus, unspecified ear
CPT/HCPCS: 99214

== ENCOUNTER → 2023-12-03 13:58 | Outpatient (BNVA) | payer OTHER, SELFPAY | PROVIDERS: PCP Internal Medicine; Visit Provider Nurse Practitioner Family | DX: G43.109 Migraine with aura, not intractable, without status migrainosus (principal); R25.2 Cramp and spasm; R76.8 Other specified abnormal immunological findings in serum; H93.19 Tinnitus, unspecified ear | CPT/HCPCS: 99212 ==

== ENCOUNTER 2023-12-04 13:35 | Outpatient (REF) | payer OTHER, SELFPAY | END 2023-12-04 13:36 | disposition home or self-care (01) | LOC: HO.LAB 13:35 | PROVIDERS: PCP Internal Medicine; Visit Provider Student in an Organized Health Care Education/Training Program | DX: Z13.89 Encounter for screening for other disorder (principal) ==

== ENCOUNTER 2023-12-05 11:11 | Outpatient (REF) | payer OTHER, SELFPAY ==
[2023-12-05 11:30] LABS: MANUAL DIFF FLAG NO
[2023-12-05 11:53] LABS: Basophils Percent Auto 0.5 % (0-2); Eosinophils Absolute Auto 0.1 X10*3/uL (0.0-0.4); Eosinophils Percent Auto 1.1 % (0-4); Hematocrit 37.4 % (37.0-47.0); Hemoglobin 12.7 g/dl (12.0-16.0); Imm Gran Abs Auto 0.03 X10*3/uL (0.00-0.03); Imm Gran Pct Auto 0.5 % (0.0-0.4); Lymphocytes Absolute Auto 1.5 X10*3/uL (1.2-4.9); Lymphocytes Percent Auto 24.3 % (20-40); Mean Corpuscular Hemoglobin 30.1 pg (27.0-33.0); Mean Corpuscular Volume 88.6 fL (80.0-98.0); Mean Platelet Volume 9.1 fL (9.4-12.3); Monocytes Absolute Auto 0.5 X10*3/uL (0.1-1.2); Monocytes Percent Auto 8.6 % (2-11); Platelet Count 407 X10*3/uL (160-400); Red Blood Count 4.22 X10*6/uL (4.20-5.50); White Blood Count 6.1 X10*3/uL (4.8-10.8)
[2023-12-05 11:54] LABS: Appearance Urine Clear; Color Urine Yellow; Glucose Urine UA Negative (Negative); Leukocyte Esterase Urine Negative (Negative); Nitrite Urine Negative (Negative); PH 8.5 (5.0-9.0); Specific Gravity - Urine 1.015 (1.005-1.025); Urine Blood Negative (Negative); Urine Ketones Negative (Negative); Urine Protein Negative (Neg-Trace)
[2023-12-05 12:12] LABS: Bacteria Urine None Seen (None Seen); Hyaline Casts Urine 0-2 /LPF (0-2); RBC Urine 0-2 /HPF (0-2); Squamous Epithelial Cell Urine 0-2 /HPF (0-2); WBC Urine 0-5 /HPF (0-5)
[2023-12-05 12:33] LABS: Creatinine Urine 84.63 mg/dL; Protein/Creatinine Ratio, Ur 0.13 (<0.2); Total Protein Urine Random 11 mg/dL (<12)
[2023-12-05 12:34] LABS: Erythrocyte Sedimentation Rate 17 MM/HR (0-20)
[2023-12-05 12:39] LABS: Alanine Aminotransferase 14 U/L (0-31); Albumin Level 4.4 g/dL (3.5-5.0); Alkaline Phosphatase 72 U/L (39-117); Anion Gap 10 (12-20); Aspartate Amino Transferase 17 U/L (5-31); Bilirubin Total 0.4 mg/dL (0.0-1.0); Blood Urea Nitrogen 11 mg/dL (9-16); C Reactive Protein 0.38 mg/dL (< or = 0.50); Calcium 9.3 mg/dL (8.4-10.2); Carbon Dioxide 23 mmol/L (22-29); Chloride 108 mmol/L (96-108); Estimated Glomerular Filt Rate > 60; Glucose Random 80 mg/dL (60-115); Potassium 4.1 mmol/L (3.3-5.1); Sodium 137 mmol/L (135-145); Total Protein 8.2 g/dL (6.5-8.0)
[2023-12-08 10:39] LABS: Complement C3 149 mg/dL (83-193)
[2023-12-08 20:28] LABS: Anti DNA DS Antibody 1 IU/mL
[2023-12-09 22:50] LABS: DNAds, Crithidia Antibody Positive (Negative)
== END 2023-12-05 11:12 | disposition home or self-care (01) ==
LOC: HO.LAB 11:11
PROVIDERS: PCP Internal Medicine; Visit Provider Student in an Organized Health Care Education/Training Program
DX: M32.9 Systemic lupus erythematosus, unspecified (principal)
CPT/HCPCS: 36415; 80053; 81001; 82570; 84156; 85025; 85652; 86140; 86160; 86225; 86255

== ENCOUNTER 2023-12-15 09:13 | Outpatient (AMB) | payer OTHER, SELFPAY ==
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
[2023-12-15 09:22] VITALS: BP 112/72; PULSE 63; O2SAT 100; BMI 37.6
== END 2023-12-15 09:44 | disposition home or self-care (01) ==
PROVIDERS: PCP Internal Medicine; Visit Provider Student in an Organized Health Care Education/Training Program
DX: M32.9 Systemic lupus erythematosus, unspecified (principal); Z79.899 Other long term (current) drug therapy
CPT/HCPCS: 99214

== ENCOUNTER → 2023-12-15 09:13 | Outpatient (BNVA) | payer OTHER, SELFPAY | PROVIDERS: PCP Internal Medicine; Visit Provider Student in an Organized Health Care Education/Training Program | DX: M32.9 Systemic lupus erythematosus, unspecified (principal); R76.8 Other specified abnormal immunological findings in serum; Z79.899 Other long term (current) drug therapy | CPT/HCPCS: 99212 ==

== ENCOUNTER 2024-06-14 12:09 | Outpatient (AMB) | payer OTHER, SELFPAY ==
--- NOTE | 2024-06-14 12:04 | MHC.OFFVIS ---
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 Allergies onion Allergy (Severe, Verified 12/15/23 09:23) Anaphylaxis animal dander Allergy (Mild, Verified 12/15/23 09:23) Watery Eye house dust Allergy (Mild, Verified 12/15/23 09:23) Sneezing COUNT INCLUDES THE [facility] Medical History Alopecia areata Rosacea Pain of postauricular region Family History Mother Hypertension Asthma Diabetes Father Diabetes Hypertension Sister Hypertension Alcoholism Depression Asthma Memory loss Anemia Unknown Breast cancer Unknown Breast cancer Social History Household Members: Children Alcohol intake: never Patient Tobacco Use Status: Never used Tobacco Coding
--- NOTE | 2024-06-14 12:10 | MHC.OFFVIS ---
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 Required: No Allergies onion Allergy (Severe, Verified 06/14/24 12:12) Anaphylaxis animal dander Allergy (Mild, Verified 06/14/24 12:12) Watery Eye house dust Allergy (Mild, Verified 06/14/24 12:12) Sneezing Medication List - Last Reconciled 06/14/24 by Rayne Villafana, MAHIN acetazolamide 250 mg (2 x 125 mg) PO TID 30 days atogepant (Qulipta) 30 mg PO DAILY 30 days cetirizine (Allergy Relief (cetirizine)) 10 mg PO DAILY PRN diclofenac potassium 50 mg PO BID PRN 30 days epinephrine 0.3 mg IM Q4H PRN famotidine 20 mg PO BID hydroxychloroquine 200 mg PO BID wuznrabbqmvf-mjyy-lvfsb acid 18-400 mg-mcg (Centrum Women) 1 tab PO DAILY sumatriptan succinate 50 - 100 mg orally at onset of headache, may repeat in 2 hrs PRN; max 2 tabs per day. 30 days sumatriptan succinate 6 mg (0.5 mL) subcut ONCE PRN 30 days MDD 12mg HPI Comments Details: 44-yr-old female presents for f/u televideo visit, for migraine. 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 She states her migraine attacks were better, had not had a severe migraine in months. However, today, she had a severe typical migraine attack a/w ear throbbing, photophobia, activity intolerance. Baseline migraine headache characteristics: Severe, Holocranial throbbing, needle stabbing headache a/w bilateral vision goes black (At onset of headache), photophobia, phonophobia, nausea, rarely vomiting, holocranial allodynia, fatigue, brain fog, not right in space dizziness. No autonomic, paresthesias, or focal weakness. She states she never received the Qulipta for migraine prevention, despite it being approved several months ago. Previous workup: May 2023: [facility] work-up: CTA MRI MRV CT c spine L spine T spine - unremrakable Work-up from Mar-Apr 2022: Brain MRI w/wo which revealed scattered periventricular and deep white matter T2 FLAIR hyperintensities; expansion of the sella turcica with flattening of the pituitary gland; and potential stenoses of the lateral aspects of the transverse sinuses bilaterally. 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 Eye exam-normal [facility] Medical History Alopecia areata Rosacea Pain of postauricular region Family History Mother Hypertension Asthma Diabetes Father Diabetes Hypertension Sister Hypertension Alcoholism Depression Asthma Memory loss Anemia Unknown Breast cancer Unknown Breast cancer Social History Household Members: Children Alcohol intake: never Patient Tobacco Use Status: Never used Tobacco Physical Exam Const General: cooperative and no acute distress Orientation/consciousness: patient oriented x3 Resp Effort & Inspection: normal respiratory effort and able to speak in complete sentences Neuro Other: Photophobic General: patient oriented x3 Cognition (Neuro): normal cognition Psych Appearance: grossly normal Mental Status: mental status grossly normal Speech and movement: Normal speech and movement present Affect: normal affect Attitude: cooperative Telehealth Telehealth Telehealth Platform: [facility] Location of provider rendering services: practice address Location of patient: address on file Patient Identification confirmed using: Name, : Yes Telehealth method: video Patient verbally consented to treatment: Yes Patient verbally consented to billing insurance company: Yes Patient informed of any privacy concerns related to visit: Yes Minutes spent on Phone/Video with Pt.: 23 Assessment & Plan Assessment & Plan (1) Migraine with aura: Comment: vision loss Code(s): G43.109 - Migraine with aura, not intractable, without status migrainosus Category: Medical (2) Bilateral leg cramps: Comment: ? RLS, ? neuropathy, ? musculoskeletal Code(s): R25.2 - Cramp and spasm Category: Medical (3) Tinnitus: Code(s): H93.19 - Tinnitus, unspecified ear Category: Medical Plan I sent a message to rheumatology to request refill for patient's hydroxychloroquine. Explained to patient that she is scheduled for a follow-up rheumatology appointment in August. For acute headache treatment: Continue Sumatriptan 100mg prn- will send extra order to allow pt to have access to 15 tabs per month. Continue Diclofena 50mg prn. Trial sumatriptan 6 mg subcutaneous injection at the onset of severe migraine with nausea, may repeat x1, max of 12 mg per day. Previous acute migraine medication trials: Advil and low-dose Sumatriptan- not full effective. Nurtec ODT 75 mg-unclear effect Acute migraine medication contraindications: None at this time ? For headache prevention medication: Continue Acetazolamide to 250mg tid. Recheck CBC/CMP. Start Qulipta 30mg po qhs. Discussed that this has been approved, we will recent order to the pharmacy today, she should be able to pick this often start now-is often this has quick onset of action. Previous migraine prevention medication trials: Amitriptyline- not tolerated. Topiramate- not tolerated. Mag Ox- caused constipation. B2- not effective. Propranolol 10mg bid- ineffective. Emgality- ineffective. Emgality-ineffective. Migraine prevention medication contraindications: None at this time. ? For BLE L >R restlessness, cramps/spasms which are worse at rest, especially at night: Magnesium gluconate 550mg qhs. Melatonin prn Previous BLE EMG/NCS- normal Future considerations- sleep study to assess for PLMS. ? Follow-up in 3-6 months or sooner prn. Medications: New sumatriptan succinate may repeat x's 1 in 1 hour. 6 mg (0.5 mL) subcut ONCE 30 days PRN 4 mL 6RF migraine with nausea MDD 12mg Refilled diclofenac potassium 50 mg PO BID 30 days PRN 30 tabs 3RF migraine headache atogepant (Qulipta) 30 mg PO DAILY 30 days 30 tabs 6RF sumatriptan succinate (0.5 - 1 x 100 mg) 50 - 100 mg orally at onset of headache, may repeat in 2 hrs PRN; max 2 tabs per day. 30 days 15 tabs 1RF migraine headache acetazolamide 250 mg (2 x 125 mg) PO TID 30 days 180 tabs 1RF Discontinued rizatriptan max 2 tabs per day or 4 tabs per week Discontinued Reason: Doctor's Order 5 - 10 mg (0.5 - 1 x 10 mg) PO Q2H 21 days PRN 12 tabs 3RF migraine headache Coding Level of Care Code Tele Est Pt Level 4 (35825) Diagnoses Migraine with aura G43.109 Bilateral leg cramps R25.2 Tinnitus H93.19
--- OUTSIDE RECORDS SUMMARY | 2024-06-14 14:54 | XMS_ITS | Clinical Summary ---
Author Organization [address] [place] [address] Address [address] [place] [address] Phone Care Team Providers Care Seed Sorter Name Role Phone Maribel Fitzpatrick MD Primary Care Provider Allergies Active Allergy Reactions Criticality Noted Date Comments Onion 02/25/2019 Throat itching, tongue swelling with white onion Medications multivitamin (MULTIPLE VITAMINS ORAL) Take 1 Tablet by mouth daily. Active acetaZOLAMIDE (DIAMOX) 125 mg tablet TAKE 1-2 TABLETS BY MOUTH 3 TIMES DAILY X7 DAYS 4 Active baclofen (LIORESAL) 10 mg tablet TAKE 1 TO 2 TABLETS BY MOUTH AT BEDTIME FOR 30 DAYS 4 Active butalbital-margareth taminophen-caf feine (FIORICET, ESGIC) 50-325-40 mg per tablet PLEASE SEE ATTACHED FOR DETAILED DIRECTIONS 4 Active EPINEPHrine (EpiPen 2-Tima) 0.3 mg/0.3 mL injection Inject 1 Device as directed as needed (anaphylaxis). Use as directed 9 Active galcanezumab-g nlm (Emgality Pen) 120 mg/mL injection pen INJECT 1 ML (120 MG) SUBCUTANEOUSLY ONCE FOR 30 DAYS 3 Active loratadine (CLARITIN) 10 mg tablet Take 1 tablet (10 mg total) by mouth 1 (one) time each day. Active omeprazole (PriLOSEC) [address] capsule Take 1 capsule (20 mg total) by mouth 1 (one) time each day. 4 Active omeprazole (PRILOSEC) 20 mg tablet,delayed release (DR/EC) 4 Active ondansetron (ZOFRAN) 4 mg tablet Take 1 tablet (4 mg total) by mouth every 8 (eight) hours if needed. 4 Active rizatriptan (MAXALT) 10 mg tablet PLEASE SEE ATTACHED FOR DETAILED DIRECTIONS 4 Active SUMAtriptan (IMITREX) 100 mg tablet TAKE ONE-HALF TO ONE TABLET BY MOUTH AT ONSET OF MIGRAINE HEADACHE,MAY REPEAT IN 2 HOURS NEEDED MAX 2 TABLETS PER DAY) 4 Active Active Problems Problem Noted Date Diagnosed Date Hemangioma of spine 06/19/2023 Overview (03/16/2024): Last Assessment & Plan: Patient was admitted to [facility] overnight 05/30/2023 for right-sided body weakness, when in CAT scan had a syncopal episode (likely vasovagal). She had a thorough workup of the brain and entire spine, no significant findings. Of note she had incidental finding of L3 hemangioma on lumbar CT, also noted on previous lumbar MRI October 2022. She had the lumbar MRI ordered after coming back from [facility] with low back pain and GI symptoms, was treated for a GI infection and symptoms resolved. Currently she sees [facility] neurology for history of migraines, recently they have been worse after COVID infection. One of her main complaints today is that since her hospital admission at random times she will get muscle spasms in the right side of her body, changes in her right vision, was discharged with baclofen which she takes at bedtime every day, seems to help. She denies any neck pain, low back pain, has history of right shoulder tendinitis, but it has not bothered her for a while. At baseline she is very active, works out twice a day, has a hot tub at home that she uses with the family. Her children are very involved in sports, her is a horse riding coach or instructor at [employer], she works out first thing in the morning and night with the family. She denies radiating pain to the arms or legs, numbness tingling in the extremities. She has history of playing softball when she was younger. She was started on Diamox, has been getting urinary incontinence from it, No saddle anesthesia. Patient had lumbar CTs 05/23/2023 at [facility], CT 05/31/2023 at [facility], overall minimal degenerative findings, incidental hemangioma noted posterior L3 vertebral body, smaller second hemangioma L5 vertebral body. She also had lumbar MRI October 2022 that shows a tall but dark L5-S1 disc with mild bulging, no nerve root compression or central stenosis, L3 hemangioma noted as well. I also reviewed her prior brain imaging at [facility] and [facility], CTs cervical spine and thoracic spine [facility]. I reviewed imaging with patient on the computer. Ms. Sauer has incidental finding of lumbar hemangioma, does not require any intervention or follow-up, I reviewed lumbar imaging with Dr. Sagastume while patient was in the office. We talked about trying some physical therapy, stretching, it sounds like she does a lot of her own PT type exercises at home in her gym with her family, has a foam roller, resistance bands, does stretching, TENS unit, Thera gun, etc. I asked her to call for follow-up if she has any worsening symptoms, questions or concerns. Obesity (BMI 35.0-39.9 without comorbidity) 05/2018 Migraine 05/28/2018 Overview (03/16/2024): Liliana aura Encounters Date Type Department Care Team Description 05/27/2024 11:24 AM EDT - 05/27/2024 11:59 PM EDT Hospital Encounter CT Scan - [address] [id number] Hemangioma of other sites Discharge Disposition: Home or Self Care from Last 3 Months Immunizations Name Administration Dates Next Due Influenza trivalent, 0.5mL, preservative free (Fluarix; FluLaval; Fluzone) ages 6mo and older (Afluria) 3 years and older 12/19/2020,12/01/2019 Influenza, Unspecified 12/30/2022,01/10/2022 Td Tetanus diptheria (Tdvax) 7yo and older 02/28,05/09/2009 Surgical History Surgery Date Site/Laterality Comments OTHER SURGICAL HISTORY 07/15/2014 PROCEDURE: IA RMVL/REVJ SLING STRESS INCONTINENCE Medical History Medical History Date Comments Migraine 05/28/2018 DX:Migraine; COM MENT: Liliana aura Memory difficulties DX:Memory di fficulties Blurred vision, bilateral DX:Andi rred vision, bilateral Stress incontinence DX:Stress in continence Back pain DX:Back pain Weakness DX:Weakness; COM MENT: left sided of body Family History Medical History Relation Name Comments Diabetes Father Asthma Mother Hypertension Mother Other: environmental allergies Mother Breast cancer Other mat cousin age 40 Hypertension Sister Relation Name Status Comments Father Mother Other mat cousin age 40 Alive Sister Social History Tobacco Use Types Packs/Day Years Used Date Smoking Tobacco: Never Smokeless Tobacco: Never Comments Unknown Sex and Gender Information Value Date Recorded Sex Assigned at Not on file Legal Sex Female 9:07 AM EST Gender Identity Not on file Sexual Orientation Not on file Obstetrics History Last Filed Vital Signs Vital Sign Reading Time Taken Comments Blood Pressure 136/80 05/27/2023 10:07 AM EDT Pulse 82 05/27/2023 10:07 AM EDT Temperature - - Respiratory Rate - - Oxygen Saturation - - Inhaled Oxygen Concentration - - Weight 99.8 kg (220 lb) 06/19/2023 11:32 AM EDT Height 170.2 cm (5' 7 ) 06/19/2023 11:32 AM EDT Body Mass Index 34.46 06/19/2023 11:32 AM EDT Plan of Treatment Upcoming Encounters Date Type Department Care Team (Late st Contact Info) Description 06/23/2024 11:30 AM EDT Office Visit Neurosurgery [facility] [address] [place] [address] Benny Etienne PA [address] [place] [address] 08/17/2024 8:00 AM EDT Appointment Radiology Department - [address] [phone] Health Maintenance Due Date Last Done Comments Hepatitis B Vaccines (1 of 3 - 19+ 3-dose series) 01/21/1999 Cervical Cancer Screening: Pap Smear 01/21/2001 Depression Screening 02/16/2022 HIV Screening 02/16/2022 Hepatitis C Screening 02/16/2022 Social Influencers of Health Screening 02/16/2022 COVID-19 Vaccine ( season) 2023 04/09/2022, 03/11/2021, 06/24/2020, Additional history exists Breast Cancer Screening 08/06/2025 08/07/19 24, 08/07/2023, 07/26/2022, Additional history exists Cholesterol Screening (Lipid Panel) 03/28/2028 03/28/2023 DTaP,Tdap,and Td Vaccines (3 - Td or Tdap) 02/28/2030 02/29/2020, 05/09/2009 Influenza Vaccine Completed 12/25/2023, , 01/10/2022, Additional history exists HIB Vaccines Aged Out No longer eligi ble based on patient's age to complete this topic HPV Vaccines Aged Out No longer eligi ble based on patient's age to complete this topic Hepatitis A Vaccines Aged Out No long er eligible based on patient's age to complete this topic IPV Vaccines Aged Out No longer eligi ble based on patient's age to complete this topic MMR Vaccines Aged Out No longer eligi ble based on patient's age to complete this topic Meningococcal ACWY Vaccine Aged Out N o longer eligible based on patient's age to complete this topic Meningococcal B Vaccine Aged Out No l onger eligible based on patient's age to complete this topic Pneumococcal Vaccine: Pediatrics (0 to 5 Years) and At-Risk Patients (6 to 64 Years) Aged Out No longer eligible based on patient's age to complete this topic RSV Immunization Patients Under 20 months Aged Out No longer eligible based on patient's age to complete this topic Varicella Vaccines Aged Out No longer eligible based on patient's age to complete this topic Procedures Procedure Name Priority Date/Time Associated Diagnosis Comments CT LUMBAR SPINE WO CONTRAST Routine 05/27/2024 11:39 AM EDT Hemangioma of other sites SCREENING MAMMOGRAPHY BI 2-VIEW BREAST INC CAD Routine 08/07/2023 8:19 AM EDT Encounter for screening mammogram for malignant neoplasm of breast LIPID PANEL Routine 03/28/2023 from Last 3 Months or Most Recently Relevant to Health Maintenance Results * CT Lumbar Spine wo Contrast (05/27/2024 11:39 AM EDT) Anatomical Region Laterality Modality Spine, L-spine Computed Tomogra phy 05/27/2024 2:28 PM EDT Impressions 05/27/2024 2:40 PM EDT 1. ??Stable hemangioma within the L3 vertebral body. 2. Degenerative changes as described above -------- FINAL REPORT -------- Dictated By: Glenn Gonzalez Dictated Date: 05/27/2024 14:28 ET Assigned Physician: Glenn Gonzalez Reviewed and Electronically Signed By: Glenn Gonzalez Signed Date: 05/27/2024 14:40 ET Workstation ID: [id number] Transcribed By: Self Edit Transcribed Date: 05/27/2024 14:28 ET Narrative 05/27/2024 2:[address] LUMBAR SPINE WITHOUT CONTRAST Clinical Statement: hemangioma lumbar spine COMPARISON: ?? CT lumbar spine from 05/23/2023 , CT abdomen and pelvis from 10/07/2022 TECHNIQUE: ??CT of the lumbosacral spine was performed using a volumetric acquisition, with 1 mm slice thickness ??in the axial plane, and sagittal and coronal reconstructions. Radiation dose 36.98 mGy. FINDINGS: There is normal lumbar lordosis. This preservation of vertebral body and disc space height. ??Again seen is a lucency within the posterior aspect of the L3 vertebral body which likely represents an hemangioma. ??Posterior elements are grossly within normal limits. ??Limited evaluation of intrapelvic contents demonstrate no acute abnormality. At T12-L1, broad-based disc bulge, facet arthropathy and hypertrophy without neuroforaminal or spinal canal stenosis At L1-L2 mild broad-based disc bulge, facet hypertrophy and arthropathy with mild left neuroforaminal stenosis. ??No right-sided neural foraminal stenosis or spinal canal stenosis At L2-L3, broad-based disc bulge, facet arthropathy and hypertrophy, ligamentum flavum hypertrophy with mild bilateral neuroforaminal stenosis and moderate spinal canal stenosis At L3-L4, broad-based is bulge, facet arthropathy and hypertrophy, ligamentum flavum hypertrophy with moderate bilateral neuroforaminal stenosis and moderate spinal canal stenosis At L4-L5, broad-based disc bulge, facet arthropathy and hypertrophy, ligamentum flavum hypertrophy with mild bilateral neuroforaminal stenosis and moderate spinal canal stenosis At L5-S1, broad-based disc bulge, facet arthropathy with mild right and moderate left neural foraminal stenosis, mild spinal canal stenosis Procedure Note Glenn Gonzalez MD - 05/27/2024 CT LUMBAR SPINE WITHOUT CONTRAST Clinical Statement: hemangioma lumbar spine COMPARISON: CT lumbar spine from 05/23/2023 , CT abdomen and pelvis from10/07/2022 TECHNIQUE: CT of the lumbosacral spine was performed using a volumetricacquisition, with 1 mm slice thickness in the axial plane, and sagittaland coronal reconstructions. Radiation dose 36.98 mGy. FINDINGS: There is normal lumbar lordosis. This preservation of vertebral body anddisc space height. Again seen is a lucency within the posterior aspect ofthe L3 vertebral body which likely represents an hemangioma. Posteriorelements are grossly within normal limits. Limited evaluation ofintrapelvic contents demonstrate no acute abnormality. At T12-L1, broad-based disc bulge, facet arthropathy and hypertrophywithout neuroforaminal or spinal canal stenosis At L1-L2 mild broad-based disc bulge, facet hypertrophy and arthropathywith mild left neuroforaminal stenosis. No right-sided neural foraminalstenosis or spinal canal stenosis At L2-L3, broad-based disc bulge, facet arthropathy and hypertrophy,ligamentum flavum hypertrophy with mild bilateral neuroforaminal stenosisand moderate spinal canal stenosis At L3-L4, broad-based is bulge, facet arthropathy and hypertrophy,ligamentum flavum hypertrophy with moderate bilateral neuroforaminalstenosis and moderate spinal canal stenosis At L4-L5, broad-based disc bulge, facet arthropathy and hypertrophy,ligamentum flavum hypertrophy with mild bilateral neuroforaminal stenosisand moderate spinal canal stenosis At L5-S1, broad-based disc bulge, facet arthropathy with mild right andmoderate left neural foraminal stenosis, mild spinal canal stenosis IMPRESSION: 1. Stable hemangioma within the L3 vertebral body. 2. Degenerative changes as described above -------- FINAL REPORT -------- Dictated By: Glenn Gonzalez Dictated Date: 05/27/2024 14:28 ET Assigned Physician: Glenn Gonzalez Reviewed and Electronically Signed By: Glenn Gonzalez Signed Date: 05/27/2024 14:40 ET Workstation ID: [id number] Transcribed By: Self Edit Transcribed Date: 05/27/2024 14:28 ET us Maribel Fitzpatrick MD IMG CT PROCEDURES Final Res ult * SCREENING MAMMOGRAPHY BI 2-VIEW BREAST INC CAD (08/07/2023 8:19 AM EDT) Anatomical Region Laterality Modality Radiographic Aubrie ging 07/26/2022 8:43 AM EDT Narrative 08/07/2023 5:29 PM EDT This is a summary report. The complete report is available in the patient's medical record. If you cannot access the medical record, please contact the sending organization for a detailed fax or copy. Study: SCREENING MAMMOGRAPHY BI 2-VIEW BREAST INC CAD Technique: Bilateral full-field digital screening mammography is obtained and read in conjunction with computer aided detection. ??Tomosynthesis as well as 2D C-View imaging were obtained. Comparison: Comparison made to multiple prior, most recent July 26, 2022, and most remote March 18, 2020. Breast composition: There are scattered areas of fibroglandular density. Bilateral breasts: No significant masses, suspicious calcifications or other abnormalities are seen in either breast. IMPRESSION: Impression: Bilateral breasts: Negative, no specific mammographic evidence of malignancy. ??Normal interval follow-up is recommended in 12 months. BI-RADS: Category 1: Negative Procedure Note Jarrod Capps MD - 10/27/2023 This is a summary report. The complete report is available in thepatient's medical record. If you cannot access the medical record, pleasecontact the sending organization for a detailed fax or copy. Study: SCREENING MAMMOGRAPHY BI 2-VIEW BREAST INC CAD Technique: Bilateral full-field digital screening mammography is obtainedand read in conjunction with computer aided detection. Tomosynthesis aswell as 2D C-View imaging were obtained. Comparison: Comparison made to multiple prior, most recent July 26, 2022,and most remote March 18, 2020. Breast composition: There are scattered areas of fibroglandular density. Bilateral breasts: No significant masses, suspicious calcifications orother abnormalities are seen in either breast. IMPRESSION: Impression: Bilateral breasts: Negative, no specific mammographic evidence ofmalignancy. Normal interval follow-up is recommended in 12 months. BI-RADS: Category 1: Negative Erica Paz MD IMG XR PROCEDURES Final Result * (ABNORMAL) Lipid panel (03/28/2023) LDL/HDL Ratio 5(A) 0 - 4 Triglycerides 141 0 - 150 mg/dL Cholesterol 187 0 - 200 mg/dL HDL 35(A) >=40 mg/dL LDL Cholesterol 124(A) 0 - 100 mg/dL Blood Venous blood specimen / Unknown Historical Provider LAB BLOOD ORDERABLES Keri l Result from Last 3 Months or Most Recently Relevant to Health Maintenance Insurance [facility] [employer] Care Teams Seed Sorter Relationship Specialty Start Date End Date Maribel Fitzpatrick MD [address] [place] [address] [place] [address] PCP - General 01/08/22
== END 2024-06-14 14:33 | disposition home or self-care (01) ==
LOC: HO.HSMS 12:37
PROVIDERS: PCP Internal Medicine; Visit Provider Nurse Practitioner Family
DX: G43.109 Migraine with aura, not intractable, without status migrainosus (principal); R25.2 Cramp and spasm; H93.13 Tinnitus, bilateral
CPT/HCPCS: 98005

== ENCOUNTER → 2024-06-14 12:09 | Outpatient (BNVA) | payer OTHER, SELFPAY | PROVIDERS: PCP Internal Medicine; Visit Provider Nurse Practitioner Family ==

== ENCOUNTER 2024-08-12 10:36 | Outpatient (REF) | payer OTHER, SELFPAY ==
[2024-08-12 12:02] LABS: Eos%MD 1.4 %; Hematocrit 35.4 % (37.0-47.0); Hemoglobin 11.8 g/dl (12.0-16.0); IG%MD 0.3 %; Lymph%MD 23.3 %; Mean Corpuscular HGB Conc 33.3 g/dl (31.0-35.0); Mean Corpuscular Hemoglobin 29.1 pg (27.0-33.0); Mean Corpuscular Volume 87.2 fL (80.0-98.0); Mean Platelet Volume 9.7 fL (9.4-12.3); Mono%MD 8.8 %; Neut%MD 65.2 %; Platelet Count 398 X10*3/uL (160-400); Red Blood Count 4.06 X10*6/uL (4.20-5.50); Red Cell Distribution Width 13.2 % (11.0-16.0); White Blood Count 5.9 X10*3/uL (4.8-10.8)
--- OUTSIDE RECORDS SUMMARY | 2024-08-12 12:28 | XMS_ITS | Clinical Summary ---
Author Organization [address] [place] [address] Address [address] [place] [address] Phone Care Team Providers Care Block Breaker Name Role Phone Maribel Fitzpatrick MD Primary [...] MAX 2 TABLETS PER DAY) 4 Active hydroxychloroq uine (PLAQUENIL) 200 mg tablet 5 Active diclofenac (CATAFLAM) 50 mg tablet 5 Active Qulipta 30 mg tablet 5 Active Active Problems Problem Noted Date Diagnosed Date Migraine without aura and responsive to treatmen t 06/22/2024 Hemangioma of spine 06/19/2023 Overview (03/16/2024): Last Assessment & Plan: Patient was admitted to [facility] overnight 05/30/2023 for right-sided body weakness, when in CAT scan had a syncopal episode (likely vasovagal). She had a thorough workup of the brain and entire spine, no significant findings. Of note she had incidental finding of L3 hemangioma on lumbar CT, also noted on previous lumbar MRI October 2022. She had the lumbar MRI ordered after coming back from [facility] with low back pain and GI symptoms, was treated for a GI infection and symptoms resolved. Currently she sees [facility] neurolog[facility] for history of migraines, recently they [...] very involved in sports, her is a motor coach driver at [employer], she works out first thing in the morning and night with the family. She denies radiating pain to the arms or legs, numbness tingling in the extremities. She has history of playing softball when she was younger. She was started on Diamox, has been getting urinary incontinence from it, No saddle anesthesia. Patient had lumbar CTs 05/23/2023 at [facility], [place] 05/31/2023 at [facility], overall minimal degenerative findings, incidental hemangioma noted posterior L3 vertebral body, smaller second hemangioma L5 vertebral body. She also had lumbar MRI October 2022 that shows a tall but dark L5-S1 disc with mild bulging, no nerve root compression or central stenosis, L3 hemangioma noted as well. I also reviewed her prior brain imaging at [facility] and [facility], CTs cervical spine and thoracic spine [facility]. I reviewed imaging with patient on the [...] has any worsening symptoms, questions or concerns. Assessment & Plan (06/23/2024 1:29 PM EDT): Ms. Sauer was seen in follow-up today. She admits to occasional right sided low back pain but says that it is nothing that an Advil does not take care of. She was seen in the office a year ago for an L3 hemangioma. Dr. Sagastume reviewed films at that time and said that there was no surgical intervention necessary and she did not need follow-up for this problem. Ms. Sauer is not really sure why she was sent in. She denies any pain or numbness in the upper or lower extremities. CT of the lumbar spine from 05/27/24 showed stable mild degenerative changes and a stable L3 heamngioma. She can follow up on an as needed basis. Obesity (BMI 35.0-39.9 without comorbidity) 10/05/2018 Migraine 05/28/2018 Overview (03/16/2024): [facility] aura Encounters Date Type Department Care Team Description 06/23/2024 11:30 AM EDT Office Visit Neurosurgery [facility] [address] [place] [address] Benny Etienne PA Hemangioma of spine (Primary Dx) 05/27/2024 11:24 AM EDT - 05/27/2024 11:59 PM EDT Hospital Encounter CT Scan - [address] [phone] Hemangioma of other sites Discharge Disposition: Home or Self Care from Last 3 Months Immunizations Name Administration Dates Next Due Influenza trivalent, 0.5mL, preservative free (Fluarix; FluLaval; Fluzone) ages 6mo and older (Afluria) 3 years and older 12/19/2020,12/01/2019 Influenza, Unspecified 12/30/2022,01/10/2022 Td Tetanus diptheria (Tdvax) 7yo and older 02/28,05/09/2009 Surgical History Surgery Date Site/Laterality Comments OTHER SURGICAL HISTORY 07/15/2014 PROCEDURE: [place] RMVL/REVJ SLING STRESS INCONTINENCE Medical History Medical History Date Comments Migraine 05/28/2018 DX:Migraine; COM MENT: Wihtout aura Memory difficulties DX:Memory di fficulties Blurred [...] Date Smoking Tobacco: Never Smokeless Tobacco: Never Tobacco Cessation:Counseling Given: Not Answered Comments Unknown Sex and Gender Information Value [...] - - Weight 99.8 kg (220 lb) 06/23/2024 12:06 PM EDT Height 170.2 cm (5' 7 ) 06/23/2024 12:06 PM EDT Body Mass Index 34.46 06/23/2024 12:06 PM EDT Plan of Treatment Upcoming Encounters Date Type Department Care Team (Late st Contact Info) Description 08/17/2024 8:00 AM EDT Appointment Radiology Department - [address] [phone] Health Maintenance Due Date Last Done Comments Hepatitis B Vaccines (1 of 3 - 19+ 3-dose series) 01/21/1999 Cervical Cancer Screening: Pap Smear 01/21/2001 Depression Screening 02/16/2022 HIV Screening 02/16/2022 Hepatitis C Screening 02/16/2022 Social Influencers of Health Screening 02/16/2022 COVID-19 Vaccine ( season) 2023 04/09/2022, 03/11/2021, 06/24/2020, Additional history exists Influenza Vaccine (Season Ended) 2024 12/30/2022, 01/10/2022, 12/19/2020, Additional history exists Breast Cancer Screening 08/06/2025 08/07/19 24, 08/07/2023, 07/26/2022, Additional history exists Cholesterol Screening (Lipid Panel) 03/28/2028 03/28/2023 DTaP,Tdap,and Td Vaccines (3 - Td or Tdap) 02/28/2030 02/29/2020, 05/09/2009 HIB Vaccines Aged Out No longer eligi [...] Signed Date: 05/27/2024 14:40 ET Workstation ID: [id number] Transcribed By: Self Edit Transcribed Date: 05/27/2024 [...] Signed Date: 05/27/2024 14:40 ET Workstation ID: [id number] Transcribed By: Self Edit Transcribed Date: 05/27/2024 [...] Most Recently Relevant to Health Maintenance Insurance [facility] PUBLIC PLANS [place] [id number] Care Teams Block Breaker Relationship Specialty Start Date End Date Maribel Fitzpatrick MD [address] [place] [address] PCP - General 01/08/22
[2024-08-12 12:39] LABS: Appearance Urine Cloudy; Color Urine Yellow; Glucose Urine UA Negative (Negative); Leukocyte Esterase Urine Small (1+) (Negative); Nitrite Urine Negative (Negative); PH 5.5 (5.0-9.0); UMIC TRIGGER UA YES; Urine Blood Large (3+) (Negative); Urine Ketones Negative (Negative); Urine Protein 30 (1+) mg/dL (Neg-Trace)
[2024-08-12 12:40] LABS: Erythrocyte Sedimentation Rate 23 MM/HR (0-20)
[2024-08-12 12:50] LABS: Alanine Aminotransferase 14 U/L (0-31); Albumin Level 4.1 g/dL (3.5-5.0); Alkaline Phosphatase 79 U/L (39-117); Anion Gap 9 (12-20); Aspartate Amino Transferase 21 U/L (5-31); Bilirubin Total 0.5 mg/dL (0.0-1.0); Blood Urea Nitrogen 14 mg/dL (9-16); C Reactive Protein 0.69 mg/dL (< or = 0.50); Calcium 9.2 mg/dL (8.4-10.2); Carbon Dioxide 26 mmol/L (22-29); Chloride 108 mmol/L (96-108); Estimated Glomerular Filt Rate > 60; Glucose Random 76 mg/dL (60-115); Potassium 4.4 mmol/L (3.3-5.1); Sodium 139 mmol/L (135-145); Total Protein 7.5 g/dL (6.5-8.0)
[2024-08-12 13:13] LABS: Band Neutrophils Percent 1 % (3-5); Eosinophils Absolute Manual 0.1 X10*3/uL (0.0-0.4); Eosinophils Percent Manual 1 % (0-4); Lymphocytes Absolute Manual 1.1 X10*3/uL (1.2-4.9); Lymphocytes Percent Manual 19 % (20-40); Monocytes Absolute Manual 0.6 X10*3/uL (0.1-1.2); Monocytes Percent Manual 10 % (2-11); Neutrophils Absolute Manual 4.1 X10*3/uL (2.0-8.3); Neutrophils Percent Manual 69 % (45-73)
[2024-08-12 13:16] LABS: Large Platelet PRESENT; Platelet Estimate NORMAL (NORMAL); Platelet Morphology Comment NOTED; RBC Morphology NORMAL
[2024-08-12 13:35] LABS: Creatinine Urine 135.65 mg/dL; Protein/Creatinine Ratio, Ur 0.21 (<0.2); Total Protein Urine Random 28 mg/dL (<12)
[2024-08-12 13:36] LABS: Bacteria Urine None Seen (None Seen); Hyaline Casts Urine 0-2 /LPF (0-2); RBC Urine >20 /HPF (0-2); Squamous Epithelial Cell Urine 0-2 /HPF (0-2); WBC Urine 0-5 /HPF (0-5)
[2024-08-13 12:13] LABS: Complement C3 154 mg/dL (83-193)
[2024-08-13 21:34] LABS: Anti DNA DS Antibody 2 IU/mL
[2024-08-18 08:34] LABS: DNAds, Crithidia Antibody Positive (Negative)
[2024-08-18 08:54] LABS: DNAds, Crithidia Antibody 1:40 titer (<1:10)
== END 2024-08-12 10:37 | disposition home or self-care (01) ==
LOC: HO.LAB 10:36
PROVIDERS: PCP Internal Medicine; Visit Provider Student in an Organized Health Care Education/Training Program
DX: M32.9 Systemic lupus erythematosus, unspecified (principal)
CPT/HCPCS: 36415; 80053; 81001; 82570; 84156; 85007; 85027; 85652; 86140; 86160; 86225; 86255

== ENCOUNTER 2024-08-20 10:00 | Outpatient (AMB) | payer OTHER, SELFPAY ==
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
[2024-08-20 10:10] VITALS: BP 124/72; PULSE 73; O2SAT 98; BMI 38.1
--- OUTSIDE RECORDS SUMMARY | 2024-08-20 10:46 | XMS_ITS | Clinical Summary ---
Author Organization [address] [place] [address] Address [address] [place] [address] Phone Care Team Providers Care Scouring Pads Supervisor Name Role Phone Maribel Fitzpatrick MD Primary [...] Assessment & Plan: Patient was admitted to [facility] overnight 05/30/2023 for right-sided body weakness, when in CAT scan had a syncopal episode (likely vasovagal). She had a thorough workup of the brain and entire spine, no significant findings. Of note she had incidental finding of L3 hemangioma on lumbar CT, also noted on previous lumbar MRI October 2022. She had the lumbar MRI ordered after coming back from [facility] with low back pain and GI symptoms, was treated for a GI infection and symptoms resolved. Currently she sees [facility] neurology for history of migraines, recently they [...] very involved in sports, her is a sales coach at [employer], she works out first thing in the morning and night with the family. She denies radiating pain to the arms or legs, numbness tingling in the extremities. She has history of playing softball when she was younger. She was started on Diamox, has been getting urinary incontinence from it, No saddle anesthesia. Patient had lumbar CTs 05/23/2023 at [facility], CT 05/31/2023 at [facility], overall minimal degenerative findings, incidental hemangioma noted posterior L3 vertebral body, smaller second hemangioma L5 vertebral body. She also had lumbar MRI October 2022 that shows a tall but dark L5-S1 disc with mild bulging, no nerve root compression or central stenosis, L3 hemangioma noted as well. I also reviewed her prior brain imaging at [facility] and [facility], CTs cervical spine and thoracic spine [facility]. I reviewed imaging with patient on the [...] comorbidity) 10/05/2018 Migraine 05/28/2018 Overview (03/16/2024): [facility] aura Encounters Date Type Department Care Team Description 08/17/2024 8:00 AM EDT - 08/17/2024 11:59 PM EDT Hospital Encounter Radiology Department - [address] [phone] Encounter for screening mammogram for breast cancer Discharge Disposition: Home or Self Care 06/23/2024 11:30 AM EDT Office Visit Neurosurgery [place] [facility] [place] [address] [place] [address] Benny Etienne PA Hemangioma of spine (Primary Dx) 05/27/2024 11:24 AM EDT - 05/27/2024 11:59 PM EDT Hospital Encounter CT Scan - [address] [phone] Hemangioma of other sites Discharge Disposition: Home or Self Care from Last 3 Months Immunizations Name Administration Dates Next Due Influenza trivalent, 0.5mL, preservative free (Fluarix; FluLaval; Fluzone) ages 6mo and older (Afluria) 3 years and older 12/19/2020,12/01/2019 Influenza, Unspecified 12/30/2022,01/10/2022 Td Tetanus diptheria (Tdvax) 7yo and older 02/28,05/09/2009 Surgical History Surgery Date Site/Laterality Comments OTHER SURGICAL HISTORY 07/15/2014 PROCEDURE: [place] RMVL/REVJ SLING STRESS INCONTINENCE Medical History Medical [...] Never Tobacco Cessation:Counseling Given: Not Answered Comments No Sex and Gender Information Value Date Recorded Sex Assigned at Not on file Legal Sex Female 9:07 AM EST Gender Identity Not on file Sexual Orientation Not on file Obstetrics History Para Term AB IAB SAB Ectopic Multiple Livin g Live Births 2 2 2 2 Date Outcome GA Total Labor Labor/2nd/3rd Weight Sex Type Anes PTL Alexandra A1 A5 Name Clin Term Term Last Filed Vital Signs Vital Sign Reading [...] 06/23/2024 12:06 PM EDT Plan of Treatment Health Maintenance Due Date Last Done Comments [...] 12/19/2020, Additional history exists Breast Cancer Screening 08/17/2026 08/18/19, 08/07/2023, 08/07/2023, Additional history exists Cholesterol Screening (Lipid Panel) [...] Procedure Name Priority Date/Time Associated Diagnosis Comments MG MAMMO DIGITAL SCREENING W GIOVANY BILAT Routine 08/17/2024 8:22 AM EDT Encounter for screening mammogram for breast cancer CT LUMBAR SPINE WO CONTRAST Routine 05/27/2024 11:39 AM EDT Hemangioma of other sites LIPID PANEL Routine 03/28/2023 from Last 3 Months or Most Recently Relevant to Health Maintenance Results * MG Mammo Digital Screening w Giovany bilat (08/17/2024 8:22 AM EDT) Anatomical Region Laterality Modality Breast Bilateral Mammography 08/17/2024 1:42 PM EDT Impressions 08/17/2024 1:45 PM EDT 1. No mammographic evidence of malignancy 2. Scattered fibroglandular tissue BI-RADS CATEGORY: 2 - BENIGN RECOMMENDATION: Screening bilateral mammogram is recommended in 1 year. Mammo Location: [facility], [address] [place] [address], [id number], . -------- FINAL REPORT -------- Dictated By: Glenn Gonzalez Dictated Date: 08/17/2024 13:42 ET Assigned Physician: Glenn Gonzalez Reviewed and Electronically Signed By: Glenn Gonzalez Signed Date: 08/17/2024 13:45 ET Workstation ID: [id number] Transcribed By: Self Edit Transcribed Date: 08/17/2024 13:42 ET Narrative 08/17/2024 1:45 PM EDT A BILATERAL DIGITAL 3D SCREENING MAMMOGRAPHY HISTORY: Routine screening. ??Family history of breast cancer COMPARISON: Multiple priors dating back to 03/18/2020 Technique: Bilateral full field digital mammography (3D) was performed using standard CC and MLO projections CAD ??was used to evaluate this mammogram. FINDINGS: Right: No suspicious masses, groups of microcalcification or areas of architectural distortion identified. Stable typically benign parenchymal asymmetries. Left: No suspicious masses, groups of microcalcification or areas of architectural distortion identified. Stable typically benign parenchymal asymmetries. BREAST DENSITY: B - There are scattered areas of fibroglandular density. Procedure Note Glenn Gonzalez MD - 08/17/2024 A BILATERAL DIGITAL 3D SCREENING MAMMOGRAPHY HISTORY: Routine screening. Family history of breast cancer COMPARISON: Multiple priors dating back to 03/18/2020 Technique: Bilateral full field digital mammography (3D) was performedusing standard CC and MLO projections CAD was used to evaluate this mammogram. FINDINGS: Right: No suspicious masses, groups of microcalcification or areas ofarchitectural distortion identified. Stable typically benign parenchymalasymmetries. Left: No suspicious masses, groups of microcalcification or areas ofarchitectural distortion identified. Stable typically benign parenchymalasymmetries. BREAST DENSITY: B - There are scattered areas of fibroglandular density. IMPRESSION: 1. No mammographic evidence of malignancy 2. Scattered fibroglandular tissue BI-RADS CATEGORY: 2 - BENIGN RECOMMENDATION: Screening bilateral mammogram is recommended in 1 year. Mammo Location: [facility], [address] [place] [address], [id number], . -------- FINAL REPORT -------- Dictated By: Glenn Gonzalez Dictated Date: 08/17/2024 13:42 ET Assigned Physician: Glenn Gonzalez Reviewed and Electronically Signed By: Glenn Gonzalez Signed Date: 08/17/2024 13:45 ET Workstation ID: [id number] Transcribed By: Self Edit Transcribed Date: 08/17/2024 13:42 ET us Vidur Shaam Fitzpatrick MD IMG BI PROCEDURES Final Res ult * CT Lumbar Spine wo Contrast (05/27/2024 [...] Signed Date: 05/27/2024 14:40 ET Workstation ID: [id number] Transcribed By: Self Edit Transcribed Date: 05/27/2024 [...] Signed Date: 05/27/2024 14:40 ET Workstation ID: [id number] Transcribed By: Self Edit Transcribed Date: 05/27/2024 14:28 ET Maribel Fitzpatrick MD IMG CT PROCEDURES Final Res ult * (ABNORMAL) Lipid panel (03/28/2023) LDL/HDL Ratio 5(A) 0 - 4 Triglycerides 141 0 - 150 mg/dL Cholesterol 187 0 - 200 mg/dL HDL 35(A) >=40 mg/dL LDL Cholesterol 124(A) 0 - 100 mg/dL Blood Venous blood specimen / Unknown Historical Provider LAB BLOOD ORDERABLES Keri l Result from Last 3 Months or Most Recently Relevant to Health Maintenance Insurance [facility] [employer] Care Teams Scouring Pads Supervisor Relationship Specialty Start Date End Date Maribel Fitzpatrick MD [address] [place] [address] [place] [address] PCP - General 01/08/22
== END 2024-08-20 10:44 | disposition home or self-care (01) ==
LOC: HO.RHE 10:01
PROVIDERS: PCP Internal Medicine; Visit Provider Student in an Organized Health Care Education/Training Program
DX: M32.9 Systemic lupus erythematosus, unspecified (principal); Z79.899 Other long term (current) drug therapy; Z79.620 Long term (current) use of immunosuppressive biologic
CPT/HCPCS: 99214; G2211

== ENCOUNTER → 2024-08-20 10:00 | Outpatient (BNVA) | payer OTHER, SELFPAY | PROVIDERS: PCP Internal Medicine; Visit Provider Student in an Organized Health Care Education/Training Program | DX: L71.0 Perioral dermatitis (principal); M32.9 Systemic lupus erythematosus, unspecified; Z79.899 Other long term (current) drug therapy; Z79.620 Long term (current) use of immunosuppressive biologic; M54.50 Low back pain, unspecified | CPT/HCPCS: 99212 ==

== ENCOUNTER 2024-12-24 09:55 | Outpatient (REF) | payer OTHER, SELFPAY ==
[2024-12-24 13:14] LABS: Appearance Urine Clear; Glucose Urine UA Negative (Negative); PH 6.5 (5.0-9.0); Specific Gravity - Urine 1.020 (1.005-1.025); UMIC TRIGGER UA YES
[2024-12-24 13:33] LABS: MANUAL DIFF FLAG NO
[2024-12-24 13:48] LABS: Hematocrit 36.9 % (37.0-47.0); Hemoglobin 12.2 g/dl (12.0-16.0); Imm Gran Abs Auto 0.01 X10*3/uL (0.00-0.03); Imm Gran Pct Auto 0.2 % (0.0-0.4); Lymphocytes Absolute Auto 1.6 X10*3/uL (1.2-4.9); Mean Corpuscular HGB Conc 33.1 g/dl (31.0-35.0); Mean Corpuscular Hemoglobin 29.0 pg (27.0-33.0); Mean Corpuscular Volume 87.6 fL (80.0-98.0); NRBC Abs Auto 0.000 X10*3/uL (0.0-0.012); NRBC Pct Auto 0.0 /100WBC (0.0-0.2); Platelet Count 405 X10*3/uL (160-400); Red Blood Count 4.21 X10*6/uL (4.20-5.50); White Blood Count 6.3 X10*3/uL (4.8-10.8)
[2024-12-24 14:34] LABS: Total Protein Urine Random < 7 mg/dL (<12)
[2024-12-24 15:55] LABS: Alanine Aminotransferase 15 U/L (0-31); Albumin Level 4.4 g/dL (3.5-5.0); Alkaline Phosphatase 75 U/L (39-117); Anion Gap 10 (12-20); Aspartate Amino Transferase 21 U/L (5-31); Blood Urea Nitrogen 14 mg/dL (9-16); Calcium 9.2 mg/dL (8.4-10.2); Carbon Dioxide 29 mmol/L (22-29); Chloride 103 mmol/L (96-108); Estimated Glomerular Filt Rate > 60; Potassium 4.1 mmol/L (3.3-5.1); Sodium 138 mmol/L (135-145); Total Protein 7.6 g/dL (6.5-8.0)
== END 2024-12-24 09:56 | disposition home or self-care (01) ==
LOC: HO.HKASLDS 09:55
PROVIDERS: PCP Internal Medicine; Visit Provider Student in an Organized Health Care Education/Training Program
DX: M32.9 Systemic lupus erythematosus, unspecified (principal); L98.9 Disorder of the skin and subcutaneous tissue, unspecified; I73.00 Raynaud's syndrome without gangrene; Z79.620 Long term (current) use of immunosuppressive biologic; Z79.899 Other long term (current) drug therapy
CPT/HCPCS: 36415; 80053; 81001; 82570; 84156; 85025; 85652; 86140; 86160; 86225; 99212

== ENCOUNTER 2024-12-24 09:55 | Outpatient (AMB) | payer OTHER, SELFPAY ==
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
[2024-12-24 10:09] VITALS: BP 122/80; PULSE 72; O2SAT 99; BMI 38.0
--- OUTSIDE RECORDS SUMMARY | 2024-12-24 11:33 | XMS_ITS | Clinical Summary ---
Author Organization [facility] Address [address] [place] [address] Phone Care Team Providers Care Containers Sales Representative Name Role Phone Maribel Fitzpatrick MD Primary Care Provider [phone] Allergies Active Allergy Reactions Criticality Noted Date Comments Onion 02/25/2019 Throat itching, tongue swelling with white onion Medications multivitamin (MULTIPLE VITAMINS ORAL) Take 1 Tablet by mouth daily. Active acetaZOLAMIDE (DIAMOX) 125 mg tablet 1 (one) time each day. 4 Active butalbital-aceta minophen-caffein e (FIORICET, ESGIC) 50-325-40 mg per tablet PLEASE SEE ATTACHED FOR DETAILED DIRECTIONS 4 Active EPINEPHrine (EpiPen 2-Tima) 0.3 mg/0.3 mL injection Inject 1 Device as directed as needed (anaphylaxis). Use as directed 9 Active loratadine (CLARITIN) 10 mg tablet Take 1 tablet (10 mg total) by mouth 1 (one) time each day. Active ondansetron (ZOFRAN) 4 mg tablet Take 1 tablet (4 mg total) by mouth every 8 (eight) hours if needed. 4 Active SUMAtriptan (IMITREX) 100 mg tablet TAKE ONE-HALF TO ONE TABLET BY MOUTH AT ONSET OF MIGRAINE HEADACHE,MAY REPEAT IN 2 HOURS NEEDED MAX 2 TABLETS PER DAY) 4 Active hydroxychloroqui ne (PLAQUENIL) 200 mg tablet 2 (two) times a day. 5 Active diclofenac (CATAFLAM) 50 mg tablet 5 Active Qulipta 30 mg tablet 1 (one) time each day. 5 Active SUMAtriptan (IMITREX) 6 mg/0.5 mL subcutaneous solution pen Inject 0.5 mL (6 mg total) under the skin. 5 Active famotidine (PEPCID) 20 mg tablet Take by mouth. Activ e dicyclomine (BENTYL) 10 mg capsule Take 1 capsule (10 mg total) by mouth 4 (four) times a day if needed (Abdominal cramping). 360 capsule 5 025 Active polyethylene glycol (Golytely) 236-22.74-6.74 -5.86 gram solution Take 4L by mouth once for one dose. May substitue any PEG. Starting at 2PM the day before your procedure drink 1 8oz glasses at your own pace until you complete half of the gallon. Finish 2nd half of the gallon at 8PM. 4000 mL 5 Active bisacodyL (DULCOLAX) 5 mg EC tablet Take 2 tablets by mouth right before beginning bowel prep. See instructions provided by the office 2 tablet 5 Active RITUXIMAB IV Infuse into a venous catheter. Active Active Problems Problem Noted Date Diagnosed Date Systemic lupus erythematosus (CMS/HCC V24, CMS/H CC V28) 10/13/2024 Family history of Crohn's disease 10/13/2024 Abdominal cramping 10/13/2024 Nauseous 10/13/2024 Hematuria 10/13/2024 Hyperlipidemia 10/13/2024 Migraine without aura and responsive to treatmen t 06/22/2024 Hemangioma of spine 06/19/2023 Overview (03/16/2024): Last Assessment & Plan: Patient was admitted to [facility] overnight 05/30/2023 for right-sided body weakness, when in CAT scan had a syncopal episode (likely vasovagal). She had a thorough workup of the brain and entire spine, no significant findings. Of note she had incidental finding of L3 hemangioma on lumbar CT, also noted on previous lumbar MRI October 2022. She had the lumbar MRI ordered after coming back from [facility] with low back pain and GI symptoms, was treated for a GI infection and symptoms resolved. 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 She denies radiating pain to the arms or legs, numbness tingling in the extremities. She has history of playing softball when she was younger. She was started on Diamox, has been getting urinary incontinence from it, No saddle anesthesia. Patient had lumbar CTs 05/23/2023 at [facility], CT 05/31/2023 at [facility], overall minimal degenerative findings, incidental hemangioma noted posterior L3 vertebral body, smaller second hemangioma L5 vertebral body. She also had lumbar MRI October 2022 that shows a tall but dark L5-S1 disc with mild bulging, no nerve root compression or central stenosis, L3 hemangioma noted as well. I also reviewed her prior brain imaging at [facility] and [facility], CTs cervical spine and thoracic spine [facility]. I reviewed imaging with patient on [...] needed basis. Obesity (BMI 35.0-39.9 without comorbidity) 05/2018 Migraine 05/28/2018 Overview (03/16/2024): Liliana aura Encounters Date Type Department Care Team Description 10/29/2024 12:08 PM EDT - 10/29/2024 11:59 PM EDT Hospital Encounter Radiology Department - [address] [address] Chronic nonintractable headache, unspecified headache type Discharge Disposition: Home or Self Care 10/25/2024 Telephone Gastroenterology - [place] [facility] [address] [address] Makayla Lal NP 10/21/2024 12:21 PM EDT - 10/21/2024 11:59 PM EDT Hospital Encounter Radiology Department - [address] [phone] Hematuria, unspecified type Discharge Disposition: Home or Self Care 10/15/2024 8:00 AM EDT Consult Gastroenterology - [place] [address] [place] 175 [facility] [address] [place] [phone] Makayla Lal NP Epigastric abdominal pain (Primary Dx); Diarrhea, unspecified type; Enterocolitis 10/14/2024 Telephone Adult Medicine [address] [address] Maribel Fitzpatrick MD 10/13/2024 12:30 PM EDT Office Visit Adult Medicine [address], [place] [phone] Maribel Fitzpatrick MD Enterocolitis (Primary Dx); Hyperlipidemia, unspecified hyperlipidemia type; Systemic lupus erythematosus, unspecified SLE type, unspecified organ involvement status ([facility] V24, [facility] V28); Hematuria, unspecified type; Nauseous; Abdominal cramping; Family history of Crohn's disease; Chronic nonintractable headache, unspecified headache type 10/11/2024 Telephone Adult Medicine [address] [phone] Maribel Fitzpatrick MD 10/07/2024 1:41 PM EDT - 10/07/2024 5:[address] [facility] Emergency [address] [place] [address] Yana Jacobs MD Enterocolitis (Primary Dx); Abdominal pain, generalized; Nausea and vomiting, unspecified vomiting type; Diarrhea, unspecified type; Microscopic hematuria Discharge Disposition: Home or Self Care 10/07/2024 Telephone Adult Medicine [address] [phone] Maribel Fitzpatrick MD from Last 3 Months Immunizations Immunization Administration Dates Next Due Influenza trivalent, 0.5mL, preservative free (Fluarix; FluLaval; Fluzone) ages 6mo and older (Afluria) 3 years and older 12/19/2020,12/01/2019 Influenza, Unspecified 12/30/2022,01/10/2022 Td Tetanus diptheria (Tdvax) 7yo and older 02/28,05/09/2009 Surgical History Surgery Date Site/Laterality Comments OTHER SURGICAL HISTORY 07/15/2014 PROCEDURE: [place] RMVL/REVJ SLING STRESS INCONTINENCE Medical History Medical History Date Comments Migraine 05/28/2018 DX:Migraine; COM MENT: Wihtout aura Memory difficulties DX:Memory di fficulties Blurred vision, bilateral DX:Andi rred vision, bilateral Stress incontinence DX:Stress in continence Back pain DX:Back pain Weakness DX:Weakness; COM MENT: left sided of body Lupus (systemic lupus erythe matosus) ([facility] V24, [facility] V28) Family History Medical History Relation Name Comments [...] at Not on file Legal Sex Female 3:14 PM EST Gender Identity Not on file Sexual Orientation Not on file Obstetrics History Para Term AB IAB SAB Ectopic Multiple Livin g Live Births 2 2 2 2 Date Outcome GA Total Labor Labor/2nd/3rd Weight Sex Type Anes PTL Alexandra A1 A5 Name Clin Term Term Last Filed Vital Signs Vital Sign Reading Time Taken Comments Blood Pressure 122/82 10/15/2024 8:03 AM EDT Pulse 70 10/15/2024 8:03 AM EDT Temperature 36.5 C (97.7 F) 10/13/2024 12:25 PM EDT Respiratory Rate 12 10/13/2024 12:25 PM EDT Oxygen Saturation 99% 10/15/2024 8:03 AM EDT Inhaled Oxygen Concentration - - Weight 103 kg (228 lb) 12/21/2024 10:00 AM EDT Height 170.2 cm (5' 7 ) 12/21/2024 10:00 AM EDT Body Mass Index 35.71 12/21/2024 10:00 AM EDT Plan of Treatment Upcoming Encounters Date Type Department Care Team (Late st Contact Info) Description 12/28/2024 1:30 PM EDT Hospital Encounter [facility] Endoscopy [address] [place] [phone] Jluian Wylie MD [address] [address] 02/04/2025 8:45 AM EST Office Visit Adult Medicine [facility] [address] [place] [address] Maribel Fitzpatrick MD [address] [place], [place] Health Maintenance Due Date Last Done Comments Hepatitis B Vaccines (1 of 3 - 19+ 3-dose series) 01/21/1999 Cervical Cancer Screening: Pap Smear 01/21/2001 HPV Vaccines (1 - 3-dose SCDM series) 01/21/2007 HIV Screening 04/08/2023 Hepatitis C Screening 04/08/2023 Social Influencers of Health Screening 04/08/2023 Depression Screening 03/10/2024 COVID-19 Vaccine ( season) 2024 04/09/2022, 03/11/2021, 06/24/2020, Additional history exists Influenza Vaccine (#1) 2024 , 01/10/2022, 12/19/2020, Additional history exists Breast Cancer Screening 08/17/2026 08/18/19, 08/07/2023, 08/07/2023, Additional history exists Cholesterol Screening (Lipid Panel) 10/14/2029 10/14/2024, 03/28/2023 DTaP,Tdap,and Td Vaccines (3 - Td or Tdap) 02/28/2030 02/29/2020, 05/09/2009 RSV Immunization Adult Patients (1 - 1-dose 75+ series) 01/21/2055 HIB Vaccines Aged Out No longer eligi [...] 5 Years) and At-Risk Patients (6 to 49 Years) Aged Out No longer eligible based on patient's age to complete this topic RSV Immunization Patients Under 20 months Aged Out No longer eligible based on patient's age to complete this topic Varicella Vaccines Aged Out No longer eligible based on patient's age to complete this topic Procedures Procedure Name Priority Date/Time Associated Diagnosis Comments MR BRAIN WO CONTRAST Routine 10/29/2024 12:56 PM EDT Chronic nonintractable headache, unspecified headache type GLIADIN ANTIBODIES, SERUM Routine 10/21/2024 1:04 PM EDT Epigastric abdominal pain Diarrhea, unspecified type ENDOMYSIAL ANTIBODY, IGA Routine 10/21/2024 1:04 PM EDT Epigastric abdominal pain Diarrhea, unspecified type TISSUE TRANSGLUTAMINASE, IGA Routine 10/21/2024 1:04 PM EDT Epigastric abdominal pain Diarrhea, unspecified type IMMUNOGLOBULIN IGA Routine 10/21/2024 1: 04 PM EDT Epigastric abdominal pain Diarrhea, unspecified type IMMUNOGLOBULIN IGA Routine 10/21/2024 1: 04 PM EDT Epigastric abdominal pain Diarrhea, unspecified type TISSUE TRANSGLUTAMINASE, IGG Routine 10/21/2024 1:04 PM EDT Epigastric abdominal pain Diarrhea, unspecified type US RETROPERITONEAL COMPLETE Routine 10/21/2024 12:56 PM EDT Hematuria, unspecified type CALPROTECTIN, STOOL Routine 10/15/2024 10:37 AM EDT Epigastric abdominal pain Diarrhea, unspecified type HELICOBACTER PYLORI ANTIGEN, STOOL Routine 10/15/2024 10:37 AM EDT Epigastric abdominal pain Diarrhea, unspecified type GASTROINTESTINAL PATHOGENS BY PCR Routine 10/15/2024 10:37 AM EDT Epigastric abdominal pain Diarrhea, unspecified type LIPID PANEL WITH REFLEX TO DIRECT LDL Routine 10/14/2024 10:46 AM EDT Hyperlipidemia, unspecified hyperlipidemia type CRISTINA URINE CULTURE TUBE Routine 10/13/2024 3:04 PM EDT Hematuria, unspecified type URINALYSIS WITH REFLEX MICROSCOPIC AND CULTURE Routine 10/13/2024 1:38 PM EDT Hematuria, unspecified type URINALYSIS WITH REFLEX MICROSCOPIC AND CULTURE Routine 10/13/2024 1:38 PM EDT Hematuria, unspecified type CT ABDOMEN PELVIS W CONTRAST STAT 10/07/2024 2:42 PM EDT POC , URINE DIAGNOSTIC STAT 10/07/2024 2:42 PM EDT URINALYSIS WITH REFLEX MICROSCOPIC STAT 10/07/2024 2:22 PM EDT URINALYSIS WITH REFLEX MICROSCOPIC STAT 10/07/2024 2:22 PM EDT CRISTINA URINE CULTURE TUBE Routine 10/07/2024 2:15 PM EDT EXTRA TUBES Routine 10/07/2024 2:15 PM EDT HCG, SERUM, QUALITATIVE STAT Add-on 10/07/2024 1:46 PM EDT CBC WITH AUTO DIFFERENTIAL STAT 10/07/2024 1:46 PM EDT LIPASE STAT 10/07/2024 1:46 PM EDT COMPREHENSIVE METABOLIC PANEL STAT 10/07/2024 1:46 PM EDT CBC AND DIFFERENTIAL STAT 10/07/2024 1:46 PM EDT MG MAMMO DIGITAL SCREENING W GIOVANY BILAT Routine 08/17/2024 8:22 AM EDT Encounter for screening mammogram for breast cancer from Last 3 Months or Most Recently Relevant to Health Maintenance Results * MR Brain wo Contrast (10/29/2024 12:56 PM EDT) Anatomical Region Laterality Modality Head and Neck Magnetic Resonan ce 10/29/2024 4:11 PM EDT Narrative 10/29/2024 4:23 PM EDT MRI of the head without intravenous contrast. HISTORY: Daily headaches. Chronic small vessel disease. Examination was performed on 1.5 Jo Ann magnet without administration of intravenous contrast. Comparison is prior MRI of the head from 05/11/2023. There is no evidence of midline shift, extra or intra-axial blood fluid collections. There is no visible masses or mass effect in the brain and cerebellum. There is no evidence of territorial infarctions and focal areas of restricted diffusion or magnetic susceptibility artifact. Again noted are numerous foci of increased FLAIR signal in the subcortical and deep white matter of both cerebral hemispheres without significant interval change since previous examination. Corpus callosum is not involved. No focal signal abnormalities were identified in the posterior fossa. Paranasal sinuses and mastoid processes are aerated. CONCLUSIONS: Stable nonspecific supratentorial white matter signal abnormalities. Please correlate clinically. -------- FINAL REPORT -------- Dictated By: Doreen Narayan Dictated Date: 10/29/2024 16:11 ET Assigned Physician: Doreen Narayan Reviewed and Electronically Signed By: Doreen Narayan Signed Date: 10/29/2024 16:23 ET Workstation ID: [id number] Transcribed By: Self Edit Transcribed Date: 10/29/2024 16:11 ET Procedure Note Doreen Narayan MD - 10/29/2024 MRI of the head without intravenous contrast. HISTORY: Daily headaches. Chronic small vessel disease. Examination was performed on 1.5 Jo Ann magnet without administration ofintravenous contrast. Comparison is prior MRI of the head from05/11/2023. There is no evidence of midline shift, extra or intra-axial blood fluidcollections. There is no visible masses or mass effect in the brain andcerebellum. There is no evidence of territorial infarctions and focalareas of restricted diffusion or magnetic susceptibility artifact. Againnoted are numerous foci of increased FLAIR signal in the subcortical anddeep white matter of both cerebral hemispheres without significantinterval change since previous examination. Corpus callosum is notinvolved. No focal signal abnormalities were identified in the posteriorfossa. Paranasal sinuses and mastoid processes are aerated. CONCLUSIONS: Stable nonspecific supratentorial white matter signalabnormalities. Please correlate clinically. -------- FINAL REPORT -------- Dictated By: Doreen Narayan Dictated Date: 10/29/2024 16:11 ET Assigned Physician: Doreen Narayan Reviewed and Electronically Signed By: Doreen Narayan Signed Date: 10/29/2024 16:23 ET Workstation ID: [id number] Transcribed By: Self Edit Transcribed Date: 10/29/2024 16:11 ET us Maribel Fitzpatrick MD IMG MRI PROCEDURES Final Re sult * Endomysial antibody, IgA (10/21/2024 1:04 PM EDT) Pathologist [facility] Endomysial IgA Negative Negative 10/22/2024 11:09 AM EDT [facility] Blood Venous blood specimen / Unknown Venipuncture / Unknown 10/21/2024 1:04 PM EDT 10/21/2024 1:04 PM EDT Makayla Lal NP LAB BLOOD ORDERABLES Final Resu lt [facility] [address] [place] [address], [place] [phone] * Gliadin antibodies, serum (10/21/2024 1:04 PM EDT) Gliadin IgA 2 <20 units LAB CHEMISTRY METHOD 10/27/2024 11:40 AM EDT [facility] Gliadin IgG 2 <20 units LAB CHEMISTRY METHOD 10/27/2024 11:40 AM EDT [facility] Gliadin IgA Antibody Negative Negative LAB CHEMISTRY METHOD 10/27/2024 11:40 AM EDT [facility] Gliadin IgG Antibody Negative Negative LAB CHEMISTRY METHOD 10/27/2024 11:40 AM EDT [facility] Blood Venous blood specimen / Unknown Venipuncture / Unknown 10/21/2024 1:04 PM EDT 10/21/2024 1:04 PM EDT us Makayla Lal GLOBAL MARKETING OPERATIONS MANAGER LAB BLOOD ORDERABLES Final Resu lt Performing Organization Address [facility]/ZIP Co de Phone Number [facility] [address] [place] [address], [place] [phone] * Tissue transglutaminase, IgA (10/21/2024 1:04 PM EDT) Pathologist [facility] Tissue Transglutaminase Ab, IgA Quant 1 <4 unit/mL LAB CHEMISTRY METHOD 10/27/2024 11:25 AM EDT [facility] Tissue Transglutaminase Ab, IgA Negative Negative LAB CHEMISTRY METHOD 10/27/2024 11:25 AM EDT [facility] Blood Venous blood specimen / Unknown Venipuncture / Unknown 10/21/2024 1:04 PM EDT 10/21/2024 1:04 PM EDT us Makayla Lal GLOBAL MARKETING OPERATIONS MANAGER LAB BLOOD ORDERABLES Final Resu lt Performing Organization Address [facility]/ZIP Co de Phone Number [facility] [address] [place] [address], [place] [phone] * (ABNORMAL) Tissue transglutaminase, IgG (10/21/2024 1:04 PM EDT) Pathologist [facility] t-Transglutamin ase (tTG) IgG 6(H) 0 - 5 U/mL 10/23/2024 9:05 PM EDT [facility] Comment: Negative 0 - 5 Weak Positive 6 - 9 Positive >9 Blood Venous blood specimen / Unknown Venipuncture / Unknown 10/21/2024 1:04 PM EDT 10/21/2024 1:04 PM EDT Narrative [facility] - 10/23/2024 9:05 PM EDT Performed at: [facility] [address] [id number] Director Financial Analysis: Lisa Gonzalez MD, Phone: [phone] us Makayla Lal GLOBAL MARKETING OPERATIONS MANAGER LAB BLOOD ORDERABLES Final Resu lt [facility] * Immunoglobulin IgA (10/21/2024 1:04 PM EDT) IgA 211 61 - 348 mg/dL LAB CHEMISTRY METHOD 10/21/2024 5:16 PM EDT [facility] Blood Venous blood specimen / Unknown Venipuncture / Unknown 10/21/2024 1:04 PM EDT 10/21/2024 1:04 PM EDT Makayla Lal NP LAB BLOOD ORDERABLES Final Resu lt Performing Organization Address City/[facility]/ZIP Co de Phone Number [facility] [address] [place] [address], [place] [phone] * US Retroperitoneal Complete (10/21/2024 12:56 PM EDT) Anatomical Region Laterality Modality Body Ultrasound 10/21/2024 4:30 PM EDT Narrative 10/21/2024 6:28 PM EDT Retroperitoneal ultrasound. History hematuria. No prior ultrasounds are available for comparison. CT of the abdomen and pelvis from 10/07/2022 was reviewed. Both kidneys were visualized was normal size and echogenicity. Right kidney measures 10 cm. Left kidney measures 10.1 cm. No evidence of nephrolithiasis, masses, hydronephrosis or perinephric fluid collections. Urinary bladder was visualized without focal abnormalities measuring 214 cc in volume before urination and 24 cc post voiding. Right ureteral jet was not seen. Left ureteral jet was seen. CONCLUSIONS: Unremarkable retroperitoneal ultrasound. -------- FINAL REPORT -------- Dictated By: Doreen Narayan Dictated Date: 10/21/2024 16:30 ET Assigned Physician: Doreen Narayan Reviewed and Electronically Signed By: Doreen Narayan Signed Date: 10/21/2024 18:28 ET Workstation ID: [id number] Transcribed By: Self Edit Transcribed Date: 10/21/2024 16:30 ET Procedure Note Doreen Narayan MD - 10/21/2024 Retroperitoneal ultrasound. History hematuria. No prior ultrasounds are available for comparison. CT of the abdomen and pelvis from 10/07/2022 was reviewed. Both kidneys were visualized was normal size and echogenicity. Rightkidney measures 10 cm. Left kidney measures 10.1 cm. No evidence ofnephrolithiasis, masses, hydronephrosis or perinephric fluid collections.Urinary bladder was visualized without focal abnormalities measuring 214cc in volume before urination and 24 cc post voiding. Right ureteral jetwas not seen. Left ureteral jet was seen. CONCLUSIONS: Unremarkable retroperitoneal ultrasound. -------- FINAL REPORT -------- Dictated By: Doreen Narayan Dictated Date: 10/21/2024 16:30 ET Assigned Physician: Doreen Narayan Reviewed and Electronically Signed By: Doreen Narayan Signed Date: 10/21/2024 18:28 ET Workstation ID: [id number] Transcribed By: Self Edit Transcribed Date: 10/21/2024 16:30 ET us Maribel Fitzpatrick MD [facility] [place] PROCEDURES Final Res ult * (ABNORMAL) Gastrointestinal pathogens molecular study (10/15/2024 10:37 AM EDT) Campylobacter Detection by PCR Not Detected Not Detected LAB MICROBIOLOGY METHOD 5 3:18 PM EDT [facility] Plesiomonas shigelloides Detection by PCR Not Detected Not Detected LAB MICROBIOLOGY METHOD 5 3:18 PM EDT [facility] Salmonella Detection by PCR Not Detected Not Detected LAB MICROBIOLOGY METHOD 5 3:18 PM EDT [facility] Vibrio Detection by PCR Not Detected Not Detected LAB MICROBIOLOGY METHOD 5 3:18 PM EDT [facility] Vibrio cholerae Detection by PCR Not Detected Not Detected LAB MICROBIOLOGY METHOD 5 3:18 PM EDT [facility] Yersinia enterocolitica Detection by PCR Not Detected Not Detected LAB MICROBIOLOGY METHOD 5 3:18 PM EDT [facility] Enteroaggregative E coli EAEC Detection by PCR Not Detected Not Detected LAB MICROBIOLOGY METHOD 5 3:18 PM EDT [facility] Enteropathogenic E coli EPEC Detection Detected(A ) Not Detected LAB MICROBIOLOGY METHOD 5 3:18 PM EDT [facility] Enterotoxigenic E coli ETEC LTST Detection Not Detected Not Detected LAB MICROBIOLOGY METHOD 5 3:18 PM EDT [facility] Shiga-like toxin producing E coli STEC STX1 STX2 Det Not Detected Not Detected LAB MICROBIOLOGY METHOD 5 3:18 PM EDT [facility] Shigella Enteroinvasive E coli EIEC Detection Not Detected Not Detected LAB MICROBIOLOGY METHOD 5 3:18 PM EDT [facility] Cryptosporidium Detection by PCR Not Detected Not Detected LAB MICROBIOLOGY METHOD 5 3:18 PM EDT [facility] Cyclospora cayetanensis Detection by PCR Not Detected Not Detected LAB MICROBIOLOGY METHOD 5 3:18 PM EDT [facility] Entamoeba histolytica Detection by PCR Not Detected Not Detected LAB MICROBIOLOGY METHOD 5 3:18 PM EDT [facility] Giardia lamblia Detection by PCR Not Detected Not Detected LAB MICROBIOLOGY METHOD 5 3:18 PM EDT [facility] Adenovirus F 40 41 Detection by PCR Not Detected Not Detected LAB MICROBIOLOGY METHOD 5 3:18 PM EDT [facility] Astrovirus Detection by PCR Not Detected Not Detected LAB MICROBIOLOGY METHOD 5 3:18 PM EDT [facility] Norovirus GI GII Detection by PCR Not Detected LAB MICROBIOLOGY METHOD 3:18 PM EDT [facility] Sapovirus Detection by PCR Not Detected Not Detected LAB MICROBIOLOGY METHOD 3:18 PM EDT [facility] Rotavirus A Detection by PCR Not Detected Not Detected LAB MICROBIOLOGY METHOD 3:18 PM EDT [facility] Stool Rectum structure / Unknown Non-blood Collection / Unknown 10/15/2024 10:37 AM EDT 10/15/2024 10:37 AM EDT Narrative [facility] - 10/15/2024 3:18 PM EDT PCR testing is much more sensitive than traditional techniques and allows for the detection of low numbers of stool pathogens. The clinical correlation of PCR results with the need for treatment and clinical outcomes has not been established. Therefore the results of PCR testing for stool pathogens must be taken into clinical context when making treatment decisions. This is a diagnostic test only, repeat testing for cure is not advised. You may consider infectious disease consult for additional guidance. Testing Performed by [facility] Makayla Lal NP LAB MICROBIOLOGY - GENERAL GUSTAVO JACINTO Final Result [facility] [address] [place] [address], * (ABNORMAL) Calprotectin, stool (10/15/2024 10:37 AM EDT) Calprotectin, Fecal 306.0(H) <50 mcg/g 10/18/2024 2:08 PM EDT [facility] Comment: <50 mcg/g Normal 50 - 120 mcg/g Borderline >120 mcg/g Abnormal Borderline results suggest repeat testing in 4 to 6 weeks. Test performed at [facility], [address] , [place] [address] Elisa Dolan MD, PhD - Legal Biller Stool Rectum structure / Unknown Non-blood Collection / Unknown 10/15/2024 10:37 AM EDT 10/15/2024 10:37 AM EDT Makayla Lal NP LAB BODY FLUIDS AND STOOLS GUSTAVO JACINTO Final Result [facility] [address] [place] [address] * (ABNORMAL) Helicobacter pylori antigen, stool (10/15/2024 10:37 AM EDT) Helicobacter Pylori Ag DETECTED( A) Not detected 10/19/2024 2:28 PM EDT [facility] Comment: This test was performed at [facility] using a chemiluminescent immunoassay intended for the qualitative determination of helicobacter pylori (H. pylori) antigen in human stool. The test is an aid in the diagnosis of patients suspected of H. pylori infection and to measure post therapy response from patients. Assay results should be used in conjunction with other clinical and laboratory data to assist the clinician in making individual patient management decisions. A negative test result does not preclude the possibility of the presence of H. pylori antigen in the specimen, which may occur if the level of antigen is below the detection limit of the test. Antimicrobials, proton pump inhibitors, and bismuth preparations are known to suppress H. pylori and, if ingested, may give a false negative result. In these cases a new fecal sample should be collected and tested 14 days after treatment has stopped. Positive results from patients that have used antibiotics, PPIs, or bismuth compounds in the 14 days prior to fecal sample collection are still considered accurate. This assay has not been evaluated in a pediatric population. This test has been approved as an in vitro diagnostic by the [place] Food and Drug Administration. Test performed at [facility], [address], [place] [address] Elisa Dolan MD, PhD - Legal Biller Stool Rectum structure / Unknown Non-blood Collection / Unknown 10/15/2024 10:37 AM EDT 10/15/2024 10:37 AM EDT Makayla Lal NP LAB BODY FLUIDS AND STOOLS GUSTAVO JACINTO Final Result [facility] [address] [place] [address] * (ABNORMAL) Lipid panel with reflex to direct LDL (10/14/2024 10:46 AM EDT) Cholesterol 177 0 - 200 mg/dL LAB CHEMISTRY METHOD 10/14/2024 2:31 PM EDT [facility] Triglycerides 186(H) 0 - 150 mg/dL LAB CHEMISTRY METHOD 10/14/2024 2:31 PM EDT [facility] HDL 32(L) >=40 mg/dL LAB CHEMISTRY METHOD 10/14/2024 2:31 PM EDT [facility] LDL Calculated 108(H) 0 - 100 mg/dL LAB CHEMISTRY METHOD 10/14/2024 2:31 PM EDT [facility] Comment:Estimated LDL Calcul ated using equation: Total cholesterol - HDL cholesterol - (Triglycerides/5) VLDL Cholesterol Jairo 37.2 mg/dL LAB CHEMISTRY METHOD 10/14/2024 2:31 PM EDT [facility] Non HDL Chol. (LDL+VLDL) 145(H) <145 mg/dL LAB CHEMISTRY METHOD 10/14/2024 2:31 PM EDT [facility] Chol/HDL Ratio 5.5(H) 0.0 - 4.4 LAB CHEMISTRY METHOD 10/14/2024 2:31 PM EDT [facility] Blood Venous blood specimen / Unknown Venipuncture / Unknown 10/14/2024 10:46 AM EDT 10/14/2024 10:47 AM EDT us Maribel Fitzpatrick MD LAB BLOOD ORDERABLES Final Result [facility] [address] [place] [address], * Cristina urine culture tube (10/13/2024 3:04 PM EDT) Only the most recent of2 resultswithin the time period is included. Pathologist [facility] Extra Tube Hold for add-ons. 10/13/2024 5:01 PM EDT [facility] Comment:Auto resulted. Urine Urine specimen obtained by clean catch procedure / Unknown Non-blood Collection / Unknown 10/13/2024 3:04 PM EDT 10/13/2024 3:04 PM EDT us Maribel Fitzpatrick MD LAB URINE ORDERABLES Final Result [facility] [address] [place] [address], [place] [phone] * (ABNORMAL) Urinalysis with reflex microscopic and culture (10/13/2024 1:38 PM EDT) [facility] Specific Halma Urine 1.021 1.003 - 1.030 LAB URINALYSIS - AUTOMATED METHOD 10/13/2024 4:40 PM [facility] pH, Urine 6.0 5.0 - 8.0 pH LAB URINALYSIS - AUTOMATED METHOD 10/13/2024 4:40 PM [facility] Leukocytes, Urine Negative Negative LAB URINALYSIS - AUTOMATED METHOD 10/13/2024 4:40 PM [facility] Nitrite, Urine Negative Negative LAB URINALYSIS - AUTOMATED METHOD 10/13/2024 4:40 PM [facility] Protein, Urine Trace <=Trace mg/dL LAB URINALYSIS - AUTOMATED METHOD 10/13/2024 4:40 PM [facility] Glucose, Urine Negative Negative mg/dL LAB URINALYSIS - AUTOMATED METHOD 10/13/2024 4:40 PM [facility] Ketones, Urine Negative Negative mg/dL LAB URINALYSIS - AUTOMATED METHOD 10/13/2024 4:40 PM [facility] Urobilinogen , Urine 1.0 0.2 - 1.0 mg/dL LAB URINALYSIS - AUTOMATED METHOD 10/13/2024 4:40 PM EDT [facility] Bilirubin, Urine Negative Negative LAB URINALYSIS - AUTOMATED METHOD 10/13/2024 4:40 PM EDT [facility] Blood, Urine Moderate(A) Negative LAB URINALYSIS - AUTOMATED METHOD 10/13/2024 4:40 PM EDT [facility] RBC, Urine 17.9(H) 0 - 4 /HPF LAB URINALYSIS - AUTOMATED METHOD 10/13/2024 4:40 PM EDT [facility] WBC, Urine 0.8 0 - 4 /HPF LAB URINALYSIS - AUTOMATED METHOD 10/13/2024 4:40 PM [facility] Squamous Epithelial, Urine 10 0 - 60 /LPF LAB URINALYSIS - AUTOMATED METHOD [facility]24 [facility] Bacteria, Urine Negative Negative /HPF LAB URINALYSIS - AUTOMATED METHOD 10/13/2024 4:40 PM T [facility] Hyaline Casts, Urine 0.8 0 - 3 /LPF LAB URINALYSIS - AUTOMATED METHOD 10/13/2024 4:40 PM [facility] Urine Urine specimen obtained by clean catch procedure / Unknown Non-blood Collection / Unknown 10/13/2024 1:38 PM EDT 10/13/2024 1:38 PM EDT us Maribel Fitzpatrick MD LAB URINE ORDERABLES Final Result [facility] [address] [place] [address], [place] [phone] * CT Abdomen Pelvis w Contrast (10/07/2024 2:42 PM EDT) Anatomical Region Laterality Modality Body Computed Tomogra phy 10/07/2024 3:12 PM EDT Impressions 10/07/2024 3:14 PM EDT Findings could be related to enterocolitis. Otherwise no acute infectious or inflammatory process is evident. -------- FINAL REPORT -------- Dictated By: Luplilo Fitzpatrick Dictated Date: 10/07/2024 15:12 ET Assigned Physician: Lupillo Fitzpatrick Reviewed and Electronically Signed By: Lupillo Fitzpatrick Signed Date: 10/07/2024 15:14 ET Workstation ID: [id number] Transcribed By: Self Edit Transcribed Date: 10/07/2024 15:12 ET Narrative 10/07/2024 3:14 PM EDT PROCEDURE: CT ABDOMEN/PELVIS WITH CONTRAST INDICATION: Abdominal pain, acute, nonlocalized LUQ tenderness, N/V/D TECHNIQUE: CT of the abdomen and pelvis following the intravenous administration of 90cc Isovue 370. Multiplanar reformats. The examination was performed utilizing dose reduction techniques. Total DLP 1275 COMPARISON: No priors available. FINDINGS: LOWER THORAX: Lung bases are clear. HEPATOBILIARY: No focal liver lesions. No cholelithiasis or biliary duct dilatation. SPLEEN: No focal lesion. PANCREAS: No focal mass or ductal dilatation. ADRENALS: No nodules. KIDNEYS/URETERS: No hydronephrosis, stones, or solid mass. PELVIC ORGANS/BLADDER: Unremarkable. PERITONEUM / RETROPERITONEUM: No ascites or free air. No retroperitoneal lymphadenopathy. VESSELS: Scattered atherosclerotic calcifications throughout the aorta and its major branches. No aneurysm. GI TRACT: Fluid in the distal small bowel and descending colon is nonspecific but can be sequelae of enterocolitis. No obstruction or other evidence for acute infectious or inflammatory process. BONES AND SOFT TISSUES: Scattered degenerative changes seen throughout the bones. Soft tissues are unremarkable. Procedure Note Lupillo Fitzpatrick MD - 10/07/2024 PROCEDURE: CT ABDOMEN/PELVIS WITH CONTRAST INDICATION: Abdominal pain, acute, nonlocalized LUQ tenderness, N/V/D TECHNIQUE: CT of the abdomen and pelvis following the intravenousadministration of 90cc Isovue 370. Multiplanar reformats. The examinationwas performed utilizing dose reduction techniques. Total DLP 1275 COMPARISON: No priors available. FINDINGS: LOWER THORAX: Lung bases are clear. HEPATOBILIARY: No focal liver lesions. No cholelithiasis or biliary ductdilatation. SPLEEN: No focal lesion. PANCREAS: No focal mass or ductal dilatation. ADRENALS: No nodules. KIDNEYS/URETERS: No hydronephrosis, stones, or solid mass. PELVIC ORGANS/BLADDER: Unremarkable. PERITONEUM / RETROPERITONEUM: No ascites or free air. No retroperitoneallymphadenopathy. VESSELS: Scattered atherosclerotic calcifications throughout the aorta andits major branches. No aneurysm. GI TRACT: Fluid in the distal small bowel and descending colon isnonspecific but can be sequelae of enterocolitis. No obstruction or otherevidence for acute infectious or inflammatory process. BONES AND SOFT TISSUES: Scattered degenerative changes seen throughout thebones. Soft tissues are unremarkable. IMPRESSION: Findings could be related to enterocolitis. Otherwise no acute infectiousor inflammatory process is evident. -------- FINAL REPORT -------- Dictated By: Lupillo Fitzpatrick Dictated Date: 10/07/2024 15:12 ET Assigned Physician: Lupillo Fitzpatrick Reviewed and Electronically Signed By: Lupillo Fitzpatrick Signed Date: 10/07/2024 15:14 ET Workstation ID: [id number] Transcribed By: Self Edit Transcribed Date: 10/07/2024 15:12 ET Yana Jacobs MD IMG CT PROCEDURES Final Result * POC , urine manually resulted (10/07/2024 2:42 PM EDT) Pathologist [facility] HCG, Ur POC Negative Negative POC hCG Int QC Pass? Yes Yes Urine Urine specimen obtained by clean catch procedure / Unknown 10/07/2024 2:42 PM EDT Yana Jacobs MD POINT OF CARE TEST ENTER/EDIT OR DERABLES Final Result * (ABNORMAL) Urinalysis with reflex microscopic (10/07/2024 2:22 PM EDT) Pathologist [facility] Specific Halma Urine 1.034(H) 1.003 - 1.030 LAB URINALYSIS - AUTOMATED METHOD 10/07/2024 2:57 PM EDT [facility] pH, Urine 5.5 5.0 - 8.0 pH LAB URINALYSIS - AUTOMATED METHOD 10/07/2024 2:57 PM [facility] Leukocytes, Urine Negative Negative LAB URINALYSIS - AUTOMATED METHOD 10/07/2024 2:57 PM [facility] Nitrite, Urine Negative Negative LAB URINALYSIS - AUTOMATED METHOD 10/07/2024 2:57 PM [facility] Protein, Urine 30(A) <=Trace mg/dL LAB URINALYSIS - AUTOMATED METHOD 10/07/2024 2:57 PM [facility] Glucose, Urine Negative Negative mg/dL LAB URINALYSIS - AUTOMATED METHOD 10/07/2024 2:57 PM [facility] Ketones, Urine Trace(A) Negative mg/dL LAB URINALYSIS - AUTOMATED METHOD 10/07/2024 2:57 PM [facility] Urobilinogen , Urine 1.0 0.2 - 1.0 mg/dL LAB URINALYSIS - AUTOMATED METHOD 10/07/2024 2:57 PM [facility] Bilirubin, Urine Negative Negative LAB URINALYSIS - AUTOMATED METHOD 10/07/2024 2:57 PM [facility] Blood, Urine Moderate(A) Negative LAB URINALYSIS - AUTOMATED METHOD 10/07/2024 2:57 PM [facility] RBC, Urine 15.4(H) 0 - 4 /HPF LAB URINALYSIS - AUTOMATED METHOD 10/07/2024 2:57 PM [facility] WBC, Urine 4.0 0 - 4 /HPF LAB URINALYSIS - AUTOMATED METHOD 10/07/2024 2:57 PM [facility] Squamous Epithelial, Urine 31 0 - 60 /LPF LAB URINALYSIS - AUTOMATED METHOD 10/07/2024 2:57 PM [facility] Bacteria, Urine Negative Negative /HPF LAB URINALYSIS - AUTOMATED METHOD 10/07/2024 2:57 PM [facility] Hyaline Casts, Urine 3.6(H) 0 - 3 /LPF LAB URINALYSIS - AUTOMATED METHOD 10/07/2024 2:57 PM EDT [facility] Urine Urine specimen obtained by clean catch procedure / Unknown Non-blood Collection / Unknown 10/07/2024 2:22 PM EDT 10/07/2024 2:47 PM EDT us Yana Jacobs MD LAB URINE ORDERABLES Final Resul t [facility] [address] [place] [address], [place] [phone] * CBC auto differential (10/07/2024 1:46 PM EDT) WBC 5.9 4.8 - 10.8 K/mcL LAB HEMETOLOGY METHOD 10/07/2024 2:02 PM EDT [facility] RBC 4.20 3.80 - 4.80 M/mcL LAB HEMETOLOGY METHOD 10/07/2024 2:02 PM EDT [facility] Hemoglobin 12.2 11.5 - 16.0 g/dL LAB HEMETOLOGY METHOD 10/07/2024 2:02 PM EDT [facility] Hematocrit 35.7 35.0 - 47.0 % LAB HEMETOLOGY METHOD 10/07/2024 2:02 PM EDT [facility] MCV 85.8 79.0 - 98.0 FL LAB HEMETOLOGY METHOD 10/07/2024 2:02 PM EDT [facility] MCH 29.3 27.0 - 32.0 pcg LAB HEMETOLOGY METHOD 10/07/2024 2:02 PM EDT [facility] MCHC 34.2 32.0 - 37.0 g/dL LAB HEMETOLOGY METHOD 10/07/2024 2:02 PM EDT [facility] RDW 13.1 11.0 - 15.0 % LAB HEMETOLOGY METHOD 10/07/2024 2:02 PM [facility] Platelets 377 130 - 400 K/mcL LAB HEMETOLOGY METHOD 10/07/2024 2:02 PM [facility] MPV 8.9 7.0 - 11.0 FL LAB HEMETOLOGY METHOD 10/07/2024 2:02 PM [facility] NRBC 0.0 <1.0 % LAB HEMETOLOGY METHOD 10/07/2024 2:02 PM [facility] NRBC Absolute 0.00 <0.10 K/mcL LAB HEMETOLOGY METHOD 10/07/2024 2:02 PM [facility] Neutrophils Relative 64.4 % LAB HEMETOLOGY METHOD 10/07/2024 2:02 PM [facility] Lymphocytes Relative 23.1 % LAB HEMETOLOGY METHOD 10/07/2024 2:02 PM [facility] Monocytes Relative 9.3 % LAB HEMETOLOGY METHOD 10/07/2024 2:02 PM [facility] Eosinophils Relative 2.7 % LAB HEMETOLOGY METHOD 10/07/2024 2:02 PM [facility] Basophils Relative 0.3 % LAB HEMETOLOGY METHOD 10/07/2024 2:02 PM [facility] Immature Granulocytes Relative 0.2 % LAB HEMETOLOGY METHOD 10/07/2024 2:02 PM [facility] Neutrophils Absolute 3.80 1.50 - 7.00 K/mcL LAB HEMETOLOGY METHOD 10/07/2024 2:02 PM [facility] Lymphocytes Absolute 1.36 1.00 - 5.00 K/mcL LAB HEMETOLOGY METHOD 10/07/2024 2:02 PM [facility] Monocytes Absolute 0.55 0.20 - 1.00 K/mcL LAB HEMETOLOGY METHOD 10/07/2024 2:02 PM EDT [facility] Eosinophils Absolute 0.16 0.00 - 0.50 K/[facility] LAB HEMETOLOGY METHOD 10/07/2024 2:02 PM EDT [facility] Basophils Absolute 0.02 0.00 - 0.20 K/[facility] LAB HEMETOLOGY METHOD 10/07/2024 2:02 PM EDT [facility] Immature Granulocytes Absolute 0.01 0.00 - 0.03 K/[facility] HEMETOLOGY METHOD 10/07/2024 2:02 PM EDT [facility] Blood Venous blood specimen / Unknown Venipuncture / Unknown 10/07/2024 1:46 PM EDT 10/07/2024 1:52 PM EDT Enzo Apple MD LAB BLOOD ORDERABLES Final Resul t Performing Organization Address City/[facility]/ZIP Co de Phone Number [facility] [address] [place] [address], [place] [phone] * hCG Qualitative (10/07/2024 1:46 PM EDT) [facility] hCG Qual Negative Negative 10/07/2024 3:00 PM EDT [facility] Blood Venous blood specimen / Unknown Venipuncture / Unknown 10/07/2024 1:46 PM EDT 10/07/2024 1:52 PM EDT Yana Jacobs MD LAB BLOOD ORDERABLES Final Resul t [facility] [address] [place] [address], [place] [phone] * Lipase (10/07/2024 1:46 PM EDT) [facility] Lipase 42 13 - 75 unit/L LAB CHEMISTRY METHOD 10/07/2024 2:27 PM EDT [facility] Blood Venous blood specimen / Unknown Venipuncture / Unknown 10/07/2024 1:46 PM EDT 10/07/2024 1:52 PM EDT Enzo Apple MD LAB BLOOD ORDERABLES Final Resul t [facility] [address] [place] [address], * Comprehensive metabolic panel (10/07/2024 1:46 PM EDT) Sodium 137 133 - 145 mmol/L LAB CHEMISTRY METHOD 10/07/2024 2:27 PM [facility] Potassium 3.9 3.5 - 5.5 mmol/L LAB CHEMISTRY METHOD 10/07/2024 2:27 PM [facility] Chloride 106 96 - 110 mmol/L LAB CHEMISTRY METHOD 10/07/2024 2:27 PM [facility] CO2 26 21 - 32 mmol/L LAB CHEMISTRY METHOD 10/07/2024 2:27 PM [facility] Anion Gap 5 3 - 11 LAB CHEMISTRY METHOD 10/07/2024 2:27 PM [facility] Glucose 83 70 - 100 mg/dL LAB CHEMISTRY METHOD 10/07/2024 2:27 PM [facility] BUN 12 5 - 25 mg/dL LAB CHEMISTRY METHOD 10/07/2024 2:27 PM [facility] Creatinine 0.73 0.50 - 1.10 mg/dL LAB CHEMISTRY METHOD 10/07/2024 2:27 PM [facility] eGFR 104 >=60 mL/min/1. 73m2 LAB CHEMISTRY METHOD 10/07/2024 2:27 PM [facility] Comment:Calculation based on the Chronic Kidney Disease Epidemiology Collaboration (CKD-EPI) equation refit without adjustment for race. BUN/Creatinine Ratio 16.4 LAB CHEMISTRY METHOD 10/07/2024 2:27 PM EDT [facility] Calcium 8.5 8.5 - 10.5 mg/dL LAB CHEMISTRY METHOD 10/07/2024 2:27 PM EDT [facility] AST (SGOT) 27 10 - 42 unit/L LAB CHEMISTRY METHOD 10/07/2024 2:27 PM EDT [facility] ALT (SGPT) 23 10 - 60 unit/L LAB CHEMISTRY METHOD 10/07/2024 2:27 PM EDT [facility] Alkaline Phosphatase 82 42 - 121 unit/L LAB CHEMISTRY METHOD 10/07/2024 2:27 PM EDT [facility] Total Protein 7.3 6.0 - 8.0 g/dL LAB CHEMISTRY METHOD 10/07/2024 2:27 PM EDT [facility] Albumin 3.6 3.2 - 5.0 g/dL LAB CHEMISTRY METHOD 10/07/2024 2:27 PM EDT [facility] Total Bilirubin 0.4 0.0 - 1.4 mg/dL LAB CHEMISTRY METHOD 10/07/2024 2:27 PM EDT [facility] Blood Venous blood specimen / Unknown Venipuncture / Unknown 10/07/2024 1:46 PM EDT 10/07/2024 1:52 PM EDT us nEzo Apple MD LAB BLOOD ORDERABLES Final Resul t [facility] [address] [place] [address], [place] [phone] * MG Mammo Digital Screening w Giovany bilat (08/17/2024 8:22 AM EDT) Anatomical Region Laterality Modality Breast Bilateral Mammography 08/17/2024 1:42 PM EDT Impressions 08/17/2024 1:45 PM EDT 1. No mammographic evidence of malignancy 2. Scattered fibroglandular tissue BI-RADS CATEGORY: 2 - BENIGN RECOMMENDATION: Screening bilateral mammogram is recommended in 1 year. Mammo Location: [facility], [address] [place] [address], [id number], . -------- FINAL REPORT -------- Dictated By: Glenn Gonzalez Dictated Date: 08/17/2024 13:42 ET Assigned Physician: Glenn Gonzalez Reviewed and Electronically Signed By: Glenn Gonzalez Signed Date: 08/17/2024 13:45 ET Workstation ID: [id number] Transcribed By: Self Edit Transcribed Date: 08/17/2024 13:42 ET Narrative 08/17/2024 1:45 PM EDT A BILATERAL DIGITAL 3D SCREENING MAMMOGRAPHY HISTORY: Routine screening. Family history of breast cancer COMPARISON: Multiple priors dating back to 03/18/2020 Technique: Bilateral full field digital mammography (3D) was performed using standard CC and MLO projections CAD was [...] is recommended in 1 year. Mammo Location: [facility], [address] [place] [address], [id number], . -------- FINAL REPORT -------- Dictated By: Glenn Gonzalez Dictated Date: 08/17/2024 13:42 ET Assigned Physician: Glenn Gonzalez Reviewed and Electronically Signed By: Glenn Gonzalez Signed Date: 08/17/2024 13:45 ET Workstation ID: [id number] Transcribed By: Self Edit Transcribed Date: 08/17/2024 13:42 ET Maribel Fitzpatrick MD IMG BI PROCEDURES Final Res ult from Last 3 Months or Most Recently Relevant to Health Maintenance Additional Health Concerns Infection Onset Date Last Indicated Enteropathogenic E. coli (EPEC) 10/15/2024 10/15/2024 Insurance [facility] Care Teams Containers Sales Representative Relationship Specialty Start Date End Date Maribel Fitzpatrick MD [address] [place] [id number] PCP - General Internal Medicine 10/07/24
== END 2024-12-24 10:44 | disposition home or self-care (01) ==
LOC: HO.RHES 09:55
PROVIDERS: PCP Internal Medicine; Visit Provider Student in an Organized Health Care Education/Training Program
DX: M32.9 Systemic lupus erythematosus, unspecified (principal); Z79.899 Other long term (current) drug therapy; Z79.620 Long term (current) use of immunosuppressive biologic
CPT/HCPCS: 99214

== ENCOUNTER 2025-01-20 10:24 | Outpatient (REF) | payer OTHER, SELFPAY ==
--- OUTSIDE RECORDS SUMMARY | 2025-01-20 12:48 | XMS_ITS | Encounter Summary ---
Author Organization [facility] Address [address] [place] [address] Care Team Providers Care Sale Professional Digital Marketing Name Role Phone Maribel Fitzpatrick MD Primary Care Provider Korina Sagastume MD Unavailable [phone] Benny Etienne PA-C Unavailable Nany Carter PA-C Unavailable Encounter Details Date Type Department Care Team Description 05/31/2023 Hospital Medical Records [address] [place] [id number] Tatyana Clark PA-C Social History Tobacco Use Types Packs/Day Years Used Date Smoking Tobacco: Never Smokeless Tobacco: Never Sex Assigned at Date Recorded Not on file Job Start Date Occupation Industry Not on file Not on file Not on file documented as of this encounter Plan of Treatment Not on file documented as of this encounter Visit Diagnoses Not on filedocumented in this encounter Care Teams Sale Professional Digital Marketing Relationship Specialty Start Date End Date Maribel Fitzpatrick MD [address] [place] [id number] PCP - General Internal Medicine 01/08/22 Korina Sagastume MD [address] [address] Surgeon Neurosurgery 06/19/23 Benny Etienne PA-C [address] [address] Specialist Neurosurgery 06/19/23 Nany Carter PA-C [address] [place] [address] Specialist Neurosurgery 06/19/23 documented as of this encounter
--- OUTSIDE RECORDS SUMMARY | 2025-01-20 12:48 | XMS_ITS | Encounter Summary ---
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 [address] [place] [address] Rayne Villafana Social History Tobacco Use Types Packs/Day Years Used Date Smoking Tobacco: Never Smokeless Tobacco: Never Sex Assigned at Date Recorded Not on file Job Start Date Occupation Industry Not on file Not on file Not on file documented as of this encounter Plan of Treatment Not on file documented as of this encounter Visit Diagnoses Not on filedocumented in this encounter Care Teams Director Of Psychiatry Relationship Specialty Start Date End Date Maribel Fitzpatrick MD [address] [place] [address] PCP - General Internal Medicine 01/08/22 Korina Sagastume MD [address] [address] Surgeon Neurosurgery 06/19/23 Benny Etienne PA-C [address] [address] Specialist Neurosurgery 06/19/23 Nany Carter PA-C [address] [place] [address] Specialist Neurosurgery 06/19/23 documented as of this encounter
--- OUTSIDE RECORDS SUMMARY | 2025-01-20 12:48 | XMS_ITS | Clinical Summary ---
Author Organization [facility] Address [address] [place] [address] Phone Care Team Providers Care Measurer Name Role Phone Maribel Fitzpatrick MD Primary Care Provider [phone] Allergies Active Allergy Reactions Criticality Noted Date Comments Onion 02/25/2019 Throat itching, tongue swelling with white onion Medications multivitamin (MULTIPLE VITAMINS ORAL) Take 1 Tablet by mouth daily. Active acetaZOLAMIDE (DIAMOX) 125 mg tablet 1 (one) time each day. 05/29/19 24 Active butalbital-acet aminophen-caffe ine (FIORICET, ESGIC) 50-325-40 mg per tablet PLEASE SEE ATTACHED FOR DETAILED DIRECTIONS 05/29/19 24 Active EPINEPHrine (EpiPen 2-Tima) 0.3 mg/0.3 mL injection Inject 1 Device as directed as needed (anaphylaxis). Use as directed 02/26/20 19 Active loratadine (CLARITIN) 10 mg tablet Take 1 tablet (10 mg total) by mouth 1 (one) time each day. Active ondansetron (ZOFRAN) 4 mg tablet Take 1 tablet (4 mg total) by mouth every 8 (eight) hours if needed. 05/31/19 24 Active SUMAtriptan (IMITREX) 100 mg tablet TAKE ONE-HALF TO ONE TABLET BY MOUTH AT ONSET OF MIGRAINE HEADACHE,MAY REPEAT IN 2 HOURS NEEDED MAX 2 TABLETS PER DAY) 05/29/19 24 Active diclofenac (CATAFLAM) 50 mg tablet 06/15/19 25 Active Qulipta 30 mg tablet 1 (one) time each day. 06/16/19 25 Active SUMAtriptan (IMITREX) 6 mg/0.5 mL subcutaneous solution pen Inject 0.5 mL (6 mg total) under the skin. 06/16/19 Active dicyclomine (BENTYL) 10 mg capsule Take 1 capsule (10 mg total) by mouth 4 (four) times a day if needed (Abdominal cramping). 360 capsule 11/16/19 25 2024 Active polyethylene glycol (Golytely) 236-22.74-6.74 -5.86 gram solution Take 4L by mouth once for one dose. May substitue any PEG. Starting at 2PM the day before your procedure drink 1 8oz glasses at your own pace until you complete half of the gallon. Finish 2nd half of the gallon at 8PM. 4000 mL 12/15/19 Active bisacodyL (DULCOLAX) 5 mg EC tablet Take 2 tablets by mouth right before beginning bowel prep. See instructions provided by the office 2 tablet 12/15/19 Active RITUXIMAB IV Infuse into a venous catheter. Active hydroxychloroqu ine (PLAQUENIL) 200 mg tablet 2 (two) times a day. 06/15/19 25 2024 Discontinued famotidine (PEPCID) 20 mg tablet Take by mouth. 2024 Discontinued Active Problems Problem Noted Date Diagnosed Date Systemic lupus erythematosus (CMS/HCC V24, CMS/H CC V28) 10/13/2024 Family history of Crohn's disease 10/13/2024 Abdominal cramping 10/13/2024 Nauseous 10/13/2024 Hematuria 10/13/2024 Hyperlipidemia 10/13/2024 Migraine without aura and responsive to treatmen t 06/22/2024 Hemangioma of spine 06/19/2023 Overview (03/16/2024): Last Assessment & Plan: Patient was admitted to [facility] overnight 05/30/2023 for right-sided body weakness, when in CAT scan had a syncopal episode (likely vasovagal). She had a thorough workup of the brain and entire spine, no significant findings. Of note she had incidental finding of L3 hemangioma on lumbar CT, also noted on previous lumbar MRI October 2022. She had the lumbar MRI ordered after coming back from [facility] with low back pain and GI symptoms, was treated for a GI infection and symptoms resolved. 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 She denies radiating pain to the arms or legs, numbness tingling in the extremities. She has history of playing softball when she was younger. She was started on Diamox, has been getting urinary incontinence from it, No saddle anesthesia. Patient had lumbar CTs 05/23/2023 at [facility], CT 05/31/2023 at [facility], overall minimal degenerative findings, incidental hemangioma noted posterior L3 vertebral body, smaller second hemangioma L5 vertebral body. She also had lumbar MRI October 2022 that shows a tall but dark L5-S1 disc with mild bulging, no nerve root compression or central stenosis, L3 hemangioma noted as well. I also reviewed her prior brain imaging at [facility] and [facility], CTs cervical spine and thoracic spine [facility]. I reviewed imaging with patient [...] without comorbidity) 05/2018 Migraine 05/28/2018 Overview (03/16/2024): [facility] aura Encounters Date Type Department Care Team Description 12/28/2024 1:41 PM EDT Anesthesia Event [facility] Endoscopy [address] [place] [id number] Jen Lora MD Hard, Shannon, CRNA 12/28/2024 12:15 PM EDT - 12/28/2024 11:59 PM EDT Hospital Encounter [facility] [address] [place] [phone] Julian Wylie MD Hard, Shannon, CRNA Kriz, Petra, MD Epigastric abdominal pain; Diarrhea, unspecified type Discharge Disposition: Home or Self Care 10/29/2024 12:08 PM EDT - 10/29/2024 11:59 PM EDT Hospital Encounter Radiology Department - [address] [phone] Chronic nonintractable headache, unspecified headache type Discharge Disposition: Home or Self Care 10/25/2024 Telephone Gastroenterology - [place] [address] [facility] [address] [facility] [address] [place] [phone] Makayla Lal NP 10/21/2024 12:21 PM EDT - 10/21/2024 11:59 PM EDT Hospital Encounter Radiology Department - [address] [address] Hematuria, unspecified type Discharge Disposition: Home or Self Care from Last 3 Months Immunizations Immunization Administration Dates Next Due Influenza trivalent, 0.5mL, preservative free (Fluarix; FluLaval; Fluzone) ages 6mo and older (Afluria) 3 years and older 12/19/2020,12/01/2019 Influenza, Unspecified 12/30/2022,01/10/2022 Td Tetanus diptheria (Tdvax) 7yo and older 02/28,05/09/2009 Surgical History Surgery Date Site/Laterality Comments OTHER SURGICAL HISTORY 07/15/2014 PROCEDURE: AK RMVL/REVJ SLING STRESS INCONTINENCE Medical History Medical History Date Comments Migraine 05/28/2018 DX:Migraine; COM MENT: Wihtout aura Memory difficulties DX:Memory di fficulties Blurred vision, bilateral DX:Andi rred vision, bilateral Stress incontinence DX:Stress in continence Back pain DX:Back pain Weakness DX:Weakness; COM MENT: left sided of body Lupus (systemic lupus erythe matosus) ([facility] V24, [facility] V28) Family History Medical History Relation Name Comments Diabetes Father Asthma Mother Hypertension Mother Other: environmental allergies Mother Breast cancer Other mat cousin age 40 Hypertension Sister Relation Name Status Comments Father Mother Other mat cousin age 40 Alive Sister Social History Tobacco Use Types Packs/Day Years Used Date Smoking Tobacco: Never Smokeless Tobacco: Never Tobacco Cessation:Counseling Given: Not Answered Alcohol Use Standard Drinks/Week Comments Never 0 (1 standard drink = 0.6 oz pur e alcohol) Interpersonal Safety Answer Date Record ed Physical Abuse Unrecognized value 12/28/2024 Verbal Abuse Unrecognized value 12/28/2024 Comments No Sex and Gender Information Value [...] Sign Reading Time Taken Comments Blood Pressure 123/81 12/28/2024 2:28 PM EDT Pulse 73 12/28/2024 2:28 PM EDT Temperature 35.6 C (96.1 F) 12/28/2024 2:08 PM EDT Respiratory Rate 18 12/28/2024 2:28 PM EDT Oxygen Saturation 100% 12/28/2024 2:28 PM EDT Inhaled Oxygen Concentration - - Weight 101 kg (223 lb) 12/28/2024 1:01 PM EDT Height 170.2 cm (5' 7 ) 12/28/2024 1:01 PM EDT Body Mass Index 34.93 12/28/2024 1:01 PM EDT Plan of Treatment Upcoming Encounters Date Type Department Care Team (Late st Contact Info) Description 02/04/2025 8:45 AM EST Office Visit Adult Medicine [facility] [address] [place] [address] Maribel Fitzpatrick MD [address] [place] [address] Health Maintenance Due Date Last Done Comments Hepatitis B Vaccines (1 of 3 - 19+ 3-dose series) 01/21/1999 Cervical Cancer Screening: Pap Smear 01/21/2001 HPV Vaccines (1 - 3-dose SCDM series) 01/21/2007 HIV Screening 04/08/2023 Hepatitis C Screening 04/08/2023 Social Influencers of Health Screening 04/08/2023 Depression Screening 03/10/2024 COVID-19 Vaccine ( season) 2024 04/09/2022, 03/11/2021, 06/24/2020, Additional history exists Breast Cancer Screening 08/17/2026 08/18/19 25, 08/07/2023, 08/07/2023, Additional history exists Cholesterol Screening (Lipid Panel) 10/14/2029 10/14/2024, 03/28/2023 DTaP,Tdap,and Td Vaccines (3 - Td or Tdap) 02/28/2030 02/29/2020, 05/09/2009 RSV Immunization Adult Patients (1 - 1-dose 75+ series) 01/21/2055 Influenza Vaccine Completed 12/18/2024, , 01/10/2022, Additional history exists HIB Vaccines [...] Procedure Name Priority Date/Time Associated Diagnosis Comments COLONOSCOPY Routine 12/28/2024 2:07 PM EDT Epigastric abdominal pain Diarrhea, unspecified type EGD Routine 12/28/2024 2:07 PM EDT Epigastric abdominal pain Diarrhea, unspecified type TISSUE EXAM Routine 12/28/2024 1:50 PM EDT Epigastric abdominal pain Diarrhea, unspecified type MR BRAIN WO CONTRAST Routine 10/29/2024 12:56 [...] 10/21/2024 12:56 PM EDT Hematuria, unspecified type LIPID PANEL WITH REFLEX TO DIRECT LDL Routine 10/14/2024 10:46 AM EDT Hyperlipidemia, unspecified hyperlipidemia type MG MAMMO DIGITAL SCREENING W GIOVANY BILAT Routine 08/17/2024 8:22 AM EDT Encounter for screening mammogram for breast cancer from Last 3 Months or Most Recently Relevant to Health Maintenance Results * COLONOSCOPY Anesthesia - MAC; [facility] ENDOSCOPY (12/28/2024 2:07 PM EDT) Anatomical Region Laterality Modality Other 12/28/2024 1:54 PM EDT Impressions 12/28/2024 2:07 PM EDT - Biopsies were taken with a cold forceps from the ascending colon for evaluation of microscopic colitis. Recommendation: - Await pathology results. - Repeat colonoscopy in 10 years for screening purposes. Narrative 12/28/2024 2:07 PM EDT [facility] GI Patient Name: Ashley Sauer Procedure Date: 12/28/2024 1:54 PM Date of : 1980 Age: 44 Gender: Female Note Status: Finalized Attending MD: Julian Wylie MD, Procedure Date No Time: 12/28/2024 Procedure: Colonoscopy Indications: Clinically significant diarrhea of unexplained origin Providers: Julian Wylie MD Referring MD: Julian Wylie MD Medicines: Propofol per Anesthesia Complications: No immediate complications. Estimated Blood Loss: Estimated blood loss was minimal. Procedure: Pre-Anesthesia Assessment: - ASA Grade Assessment: II - A patient with mild systemic disease. After I obtained informed consent, the scope was passed under direct vision. Throughout the procedure, the patient's blood pressure, pulse, and oxygen saturations were monitored continuously.The Olympus Pediatric Colonoscope was introduced through the anus and advanced to the terminal ileum. The colonoscopy was performed without difficulty. The patient tolerated the procedure well. The quality of the bowel preparation was adequate. Findings: The perianal and digital rectal examinations were normal. Biopsies for histology were taken with a cold forceps from the ascending colon for evaluation of microscopic colitis. Procedure Code(s): --- Professional --- 71581, Colonoscopy, flexible; with biopsy, single or multiple Diagnosis Code(s): --- Professional --- R19.7, Diarrhea, unspecified CPT copyright 2020 [employer]. All rights reserved. The codes documented in this report are preliminary and upon keypuncher review may be revised to meet current compliance requirements. Julian Wylie MD 12/28/2024 2:07:48 PM This report has been signed electronically.Julian Wylie MD Number of Addenda: 0 Note Initiated On: 12/28/2024 1:54 PM Scope In: Scope Out: Endoscopy Department at [facility] - [address] [place] [phone] Procedure Note Julian Wylie MD - 12/28/2024 [facility] GI Patient Name: Ashley Sauer Procedure Date: 12/28/2024 1:54 PM Date of : 1980 Age: 44 Gender: Female Note Status: Finalized Attending MD: Julian Wylie MD, Procedure Date No Time: 12/28/2024 Procedure: Colonoscopy Indications: Clinically significant diarrhea of unexplainedorigin Providers: Julian Wylie MD Referring MD: Julian Wylie MD Medicines: Propofol per Anesthesia Complications: No immediate complications. Estimated Blood Loss: Estimated blood loss was minimal. Procedure: Pre-Anesthesia Assessment: - ASA Grade Assessment: II - A patient with mild systemic disease. After I obtained informed consent, the scope was passed under direct vision. Throughout theprocedure, the patient's blood pressure, pulse, and oxygen saturations were monitored continuously.The Olympus Pediatric Colonoscope was introduced through theanus and advanced to the terminal ileum. The colonoscopy was performed without difficulty. The patient tolerated the procedure well. The quality of thebowel preparation was adequate. Findings: The perianal and digital rectal examinations were normal. Biopsies for histology were taken with a coldforceps from the ascending colon for evaluation ofmicroscopic colitis. Procedure Code(s): --- Professional --- 36266, Colonoscopy, flexible; with biopsy, singleor multiple Diagnosis Code(s): --- Professional --- R19.7, Diarrhea, unspecified CPT copyright 2020 [employer]. All rights reserved. The codes documented in this report are preliminary and upon keypuncher reviewmay be revised to meet current compliance requirements. Julian Wylie MD 12/28/2024 2:07:48 PM This report has been signed electronically.Julian Wylie MD Number of Addenda: 0 Note Initiated On: 12/28/2024 1:54 PM Scope In: Scope Out: Endoscopy Department at [facility] - [address] [place] [phone] IMPRESSION: - Biopsies were taken with a cold forceps from the ascending colon for evaluation of microscopiccolitis. Recommendation: - Await pathology results. - Repeat colonoscopy in 10 years for screening purposes. Julian Wylie MD GI~PROCEDURE ORDERABLES Final Re sult * EGD Anesthesia - MAC; [facility] ENDOSCOPY (12/28/2024 2:07 PM EDT) Anatomical Region Laterality Modality Other 12/28/2024 1:37 PM EDT Impressions 12/28/2024 1:54 PM EDT - Erythematous mucosa in the gastric body. Biopsied. - Biopsies were taken with a cold forceps for evaluation of celiac disease. Recommendation: - Await pathology results. - Observe patient's clinical course. Narrative 12/28/2024 1:54 PM EDT [facility] GI Patient Name: Ashley Sauer Procedure Date: 12/28/2024 1:37 PM Date of : 1980 Age: 44 Gender: Female Note Status: Finalized Attending MD: Julian Wylie MD, Procedure Date No Time: 12/28/2024 Procedure: Upper GI endoscopy Indications: Epigastric abdominal pain, Diarrhea Providers: Julian Wylie MD Referring MD: Julian Wylie MD Medicines: Propofol per Anesthesia Complications: No immediate complications. Estimated Blood Loss: Estimated blood loss was minimal. Procedure: Pre-Anesthesia Assessment: - ASA Grade Assessment: II - A patient with mild systemic disease. After obtaining informed consent, the endoscope was passed under direct vision. Throughout the procedure, the patient's blood pressure, pulse, and oxygen saturations were monitored continuously.The Olympus Gastroscope was introduced through the mouth, and advanced to the second part of duodenum. The upper GI endoscopy was accomplished without difficulty. The patient tolerated the procedure well. Findings: Localized mildly erythematous mucosa without bleeding was found in the gastric body. Biopsies were taken with a cold forceps for histology. Estimated blood loss was minimal. Biopsies for histology were taken with a cold forceps in the second portion of the duodenum for evaluation of celiac disease. Estimated blood loss was minimal. Procedure Code(s): --- Professional --- 50515, Esophagogastroduodenoscopy, flexible, transoral; with biopsy, single or multiple Diagnosis Code(s): --- Professional --- K31.89, Other diseases of stomach and duodenum R10.13, Epigastric pain R19.7, Diarrhea, unspecified CPT copyright 2020 [employer]. All rights reserved. The codes documented in this report are preliminary and upon keypuncher review may be revised to meet current compliance requirements. Julian Wylie MD 12/28/2024 1:54:25 PM This report has been signed electronically.Julian Wylie MD Number of Addenda: 0 Note Initiated On: 12/28/2024 1:37 PM Scope In: Scope Out: Endoscopy Department at [facility] - [address] [place] [phone] Procedure Note Julian Wylie MD - 12/28/2024 [facility] GI Patient Name: Ashley Sauer Procedure Date: 12/28/2024 1:37 PM Date of : 1980 Age: 44 Gender: Female Note Status: Finalized Attending MD: Julian Wylie MD, Procedure Date No Time: 12/28/2024 Procedure: Upper GI endoscopy Indications: Epigastric abdominal pain, Diarrhea Providers: Julian Wylie MD Referring MD: Julian Wylie MD Medicines: Propofol per Anesthesia Complications: No immediate complications. Estimated Blood Loss: Estimated blood loss was minimal. Procedure: Pre-Anesthesia Assessment: - ASA Grade Assessment: II - A patient with mild systemic disease. After obtaining informed consent, the endoscope was passed under direct vision. Throughout theprocedure, the patient's blood pressure, pulse, and oxygen saturations were monitored continuously.The Olympus Gastroscope was introduced through the mouth, and advanced to the second part of duodenum. The upperGI endoscopy was accomplished without difficulty. The patient tolerated the procedure well. Findings: Localized mildly erythematous mucosa withoutbleeding was found in the gastric body. Biopsies were taken with a cold forceps for histology. Estimated blood loss was minimal. Biopsies for histology were taken with a coldforceps in the second portion of the duodenum forevaluation of celiac disease. Estimated blood loss wasminimal. Procedure Code(s): --- Professional --- 18193, Esophagogastroduodenoscopy, flexible, transoral; with biopsy, single or multiple Diagnosis Code(s): --- Professional --- K31.89, Other diseases of stomach and duodenum R10.13, Epigastric pain R19.7, Diarrhea, unspecified CPT copyright 2020 [employer]. All rights reserved. The codes documented in this report are preliminary and upon keypuncher reviewmay be revised to meet current compliance requirements. Julian Wylie MD 12/28/2024 1:54:25 PM This report has been signed electronically.Julian Wylie MD Number of Addenda: 0 Note Initiated On: 12/28/2024 1:37 PM Scope In: Scope Out: Endoscopy Department at [facility] - [address] [place] [phone] IMPRESSION: - Erythematous mucosa in the gastric body. Biopsied. - Biopsies were taken with a cold forceps for evaluation of celiac disease. Recommendation: - Await pathology results. - Observe patient's clinical course. us Julian Wylie MD GI~PROCEDURE ORDERABLES Final Re sult * Tissue exam (12/28/2024 1:50 PM EDT) Final Diagnosis A. Duodenum, descending, biopsy: - Small bowel mucosa without diagnostic histopathologic change. - Villous architecture is generally preserved and there is no increase in intraepithelial lymphocytes. B. Labeled proximal stomach , biopsy: - Gastric antral- and oxyntic type mucosa with prominent superficial lymphoplasmacytic infiltrate (chronic gastritis). - No active gastritis and no intestinal metaplasia identified. - Although no definite Helicobacter pylori are seen on hematoxylin and eosin stained slides, given the dense infiltrate of small lymphocytes and plasma cells, an immunohistochemical study for Helicobacter pylori was performed. Immunohistochemical study is negative for Helicobacter pylori (appropriate control reviewed). C. Colon, ascending, biopsy: - Colonic mucosa without diagnostic histopathologic change. - No increase in intraepithelial lymphocytes and no thickening of the subepithelial collagen layer identified. 5 1:47 PM EDT [facility] at 1347 EDT Gross Description A. Small Intestine, Duodenum, descending biopsies: Labeled duodenum, descending . Received in formalin are two irregular morley mucosal tissue fragments, measuring 0.1 cm and 0.3 cm in greatest dimension, which are wrapped in paper and submitted in toto in one cassette, two pieces, multiple levels on one slide. B. Stomach, proximal stomach biopsies: Labeled stomach proximal . Received in formalin are two irregular morlye mucosal tissue fragments, each measuring approximately 0.3 cm in greatest dimension, which are wrapped in paper and submitted in toto in one cassette, two pieces, multiple levels on one slide. C. Large Intestine, Right/Ascending Colon, biopsies: Labeled ascend colon biopsies . Received in formalin are two irregular morley mucosal tissue fragments, each measuring approximately 0.3 cm in greatest dimension, which are wrapped in paper and submitted in toto in one cassette, two pieces, multiple levels on one slide. HENRY 5 1:47 PM EDT [facility] Disclaimer NOTE: The immunohistochemical tests and in situ hybridization tests were developed and their performance characteristics were determined by [facility]. They have not been cleared or approved by the U.S. Food and Drug Administration. The FDA has determined that such clearance or approval is not necessary. These tests are used for clinical purposes. They should not be regarded as investigational or for research. This laboratory is certified under the Clinical Laboratory Improvement Amendments of 1988 (CLIA) as qualified to perform high complexity clinical laboratory testing. (controls appropriate) Unless otherwise specified, all tissue is 10% NB formalin fixed and paraffin embedded. 1:47 PM EDT [facility] Tissue Duodenal structure / Unknown 12/28/2024 1:50 PM EDT 12/28/2024 2:54 PM EDT Tissue specimen (specimen) Stomach structure / Unknown 12/28/2024 1:51 PM EDT 12/28/2024 2:54 PM EDT Tissue specimen (specimen) Ascending colon structure / Unknown 12/28/2024 2:02 PM EDT 12/28/2024 2:54 PM EDT us Julian Wylie MD LAB PATHOLOGY ORDERABLES Final R esult [facility] ([facility]) [facility] [address] [place] [address], * MR Brain wo Contrast (10/29/2024 12:56 [...] Signed Date: 10/29/2024 16:23 ET Workstation ID: [id number] Transcribed By: Self Edit Transcribed Date: 10/29/2024 [...] Signed Date: 10/29/2024 16:23 ET Workstation ID: [id number] Transcribed By: Self Edit Transcribed Date: 10/29/2024 16:11 ET us Maribel Fitzpatrick MD IM MRI PROCEDURES Final Re sult * Endomysial antibody, IgA (10/21/2024 1:04 PM EDT) Endomysial IgA Negative Negative 10/22/2024 11:09 AM EDT [facility] Blood Venous blood specimen / Unknown Venipuncture / Unknown 10/21/2024 1:04 PM EDT 10/21/2024 1:04 PM EDT us Makayla Lal EXECUTIVE VP LAB BLOOD ORDERABLES Final Resu lt Performing Organization Address [facility]/ZIP Co de Phone Number [facility] [address] [place] [address], [place] [phone] * Gliadin antibodies, serum (10/21/2024 1:04 PM EDT) Gliadin IgA 2 <20 units LAB CHEMISTRY METHOD 10/27/2024 11:40 AM EDT [facility] Gliadin IgG 2 <20 units LAB CHEMISTRY METHOD 10/27/2024 11:40 AM EDT [facility] Gliadin IgA Antibody Negative Negative LAB CHEMISTRY METHOD 10/27/2024 11:40 AM EDT [facility] Gliadin IgG Antibody Negative Negative LAB CHEMISTRY METHOD 10/27/2024 11:40 AM EDT [facility] Blood Venous blood specimen / Unknown Venipuncture / Unknown 10/21/2024 1:04 PM EDT 10/21/2024 1:04 PM EDT us Makayla Lal EXECUTIVE VP LAB BLOOD ORDERABLES Final Resu lt Performing Organization Address City/[facility]/ZIP Co de Phone Number [facility] [address] [place] [address], [place] [phone] * Tissue transglutaminase, IgA (10/21/2024 1:04 PM EDT) Tissue Transglutaminase Ab, IgA Quant 1 <4 unit/mL LAB CHEMISTRY METHOD 10/27/2024 11:25 AM EDT [facility] Tissue Transglutaminase Ab, IgA Negative Negative LAB CHEMISTRY METHOD 10/27/2024 11:25 AM EDT [facility] Blood Venous blood specimen / Unknown Venipuncture / Unknown 10/21/2024 1:04 PM EDT 10/21/2024 1:04 PM EDT Makayla Lal EXECUTIVE VP LAB BLOOD ORDERABLES Final Resu lt [facility] [address] [place] [address], [place] [phone] * (ABNORMAL) Tissue transglutaminase, IgG (10/21/2024 1:04 PM EDT) Pathologist [facility] t-Transglutamin ase (tTG) IgG 6(H) 0 - 5 U/mL 10/23/2024 9:05 PM EDT [facility] Comment: Negative 0 - 5 Weak Positive 6 - 9 Positive >9 Blood Venous blood specimen / Unknown Venipuncture / Unknown 10/21/2024 1:04 PM EDT 10/21/2024 1:04 PM EDT Narrative [facility] - 10/23/2024 9:05 PM EDT Performed at: [facility] [id number] Veterans' Counselor: Lisa Gonzalez MD, Phone: [phone] Makayla Lal EXECUTIVE VP LAB BLOOD ORDERABLES Final Resu lt Performing Organization Address City/[facility]/ZIP Co de Phone Number [facility] * Immunoglobulin IgA (10/21/2024 1:04 PM EDT) Pathologist [facility] IgA 211 61 - 348 mg/dL LAB CHEMISTRY METHOD 10/21/2024 5:16 PM EDT [facility] Blood Venous blood specimen / Unknown Venipuncture / Unknown 10/21/2024 1:04 PM EDT 10/21/2024 1:04 PM EDT Makayla Lal EXECUTIVE VP LAB BLOOD ORDERABLES Final Resu lt [facility] [address] [place] [address], [place] [phone] * [place] Retroperitoneal Complete (10/21/2024 12:56 PM [...] Signed Date: 10/21/2024 18:28 ET Workstation ID: [id number] Transcribed By: Self Edit Transcribed Date: 10/21/2024 [...] Signed Date: 10/21/2024 18:28 ET Workstation ID: [id number] Transcribed By: Self Edit Transcribed Date: 10/21/2024 16:30 ET us Maribel Fitzpatrick MD IM US PROCEDURES Final Res ult * (ABNORMAL) Lipid panel with reflex to direct LDL (10/14/2024 10:46 AM EDT) Cholesterol 177 0 - 200 mg/dL LAB CHEMISTRY METHOD 10/14/2024 2:31 PM EDT [facility] Triglycerides 186(H) 0 - 150 mg/dL LAB CHEMISTRY METHOD 10/14/2024 2:31 PM [facility] HDL 32(L) >=40 mg/dL LAB CHEMISTRY METHOD 10/14/2024 2:31 PM EDT [facility] LDL Calculated 108(H) 0 - 100 mg/dL LAB CHEMISTRY METHOD 10/14/2024 2:31 PM EDT [facility] Comment:Estimated LDL Calcul ated using equation: Total cholesterol - HDL cholesterol - (Triglycerides/5) VLDL Cholesterol Jairo 37.2 mg/dL LAB CHEMISTRY METHOD 10/14/2024 2:31 PM [facility] Non HDL Chol. (LDL+VLDL) 145(H) <145 mg/dL LAB CHEMISTRY METHOD 10/14/2024 2:31 PM EDT [facility] Chol/HDL Ratio 5.5(H) 0.0 - 4.4 LAB CHEMISTRY METHOD 10/14/2024 2:31 PM [facility] Blood Venous blood specimen / Unknown Venipuncture / Unknown 10/14/2024 10:46 AM EDT 10/14/2024 10:47 AM EDT us Maribel Fitzpatrick MD LAB BLOOD ORDERABLES Final Result [facility] [address] [place] [address], * MG Mammo Digital Screening w Giovany bilat (08/17/2024 8:22 AM EDT) Anatomical Region Laterality Modality Breast Bilateral Mammography 08/17/2024 1:42 PM EDT Impressions 08/17/2024 1:45 PM EDT 1. No mammographic evidence of malignancy 2. Scattered fibroglandular tissue BI-RADS CATEGORY: 2 - BENIGN RECOMMENDATION: Screening bilateral mammogram is recommended in 1 year. Mammo Location: [facility], [address] [place] [address], [id number], . -------- FINAL REPORT -------- Dictated By: Glenn Gonzalez Dictated Date: 08/17/2024 13:42 ET Assigned Physician: Glenn Gonzalez Reviewed and Electronically Signed By: Glenn Gonzalez Signed Date: 08/17/2024 13:45 ET Workstation ID: [id number] Transcribed By: Self Edit Transcribed Date: 08/17/2024 [...] is recommended in 1 year. Mammo Location: [facility], [address] [place] [address], [id number], . -------- FINAL REPORT -------- Dictated By: Glenn Gonzalez Dictated Date: 08/17/2024 13:42 ET Assigned Physician: Glenn Gonzalez Reviewed and Electronically Signed By: Glenn Gonzalez Signed Date: 08/17/2024 13:45 ET Workstation ID: [id number] Transcribed By: Self Edit Transcribed Date: 08/17/2024 13:42 ET Maribel Fitzpatrick MD IMG BI PROCEDURES Final Res ult from Last 3 Months or Most Recently Relevant to Health Maintenance Additional Health Concerns Infection Onset Date Last Indicated Enteropathogenic E. coli (EPEC) 10/15/2024 10/15/2024 Insurance [facility] Care Teams Measurer Relationship Specialty Start Date End Date Maribel Fitzpatrick MD [address] [place] [address] PCP - General Internal Medicine 10/07/24
--- OUTSIDE RECORDS SUMMARY | 2025-01-20 12:48 | XMS_ITS | Encounter Summary ---
Author Organization [facility] Address [address] [place] [address] Care Team Providers Care Veterinary Medicine Scientist Name Role Phone Maribel Fitzpatrick MD Primary Care Provider Korina Sagastume MD Unavailable [phone] Benny Etienne PA-C Unavailable Nany Carter PA-C Unavailable [phone] Encounter Details Date Type Department Care Team Description 12/23/2022 Transfer Records Medical Records [address] [place] [id number] Abstract, Provider Social History Tobacco Use Types Packs/Day Years Used Date Smoking Tobacco: Never Smokeless Tobacco: Never Sex Assigned at Date Recorded Not on file Job Start Date Occupation Industry Not on file Not on file Not on file documented as of this encounter Plan of Treatment Not on file documented as of this encounter Visit Diagnoses Not on filedocumented in this encounter Care Teams Veterinary Medicine Scientist Relationship Specialty Start Date End Date Maribel Fitzpatrick MD [address] [place] [address] PCP - General Internal Medicine 01/08/22 Korina Sagastume MD [address] [address] Surgeon Neurosurgery 06/19/23 Benny Etienne PA-C [address] [address] Specialist Neurosurgery 06/19/23 Nany Carter PA-C [address] [place] [address] Specialist Neurosurgery 06/19/23 documented as of this encounter
--- OUTSIDE RECORDS SUMMARY | 2025-01-20 12:48 | XMS_ITS | Encounter Summary ---
Author Organization [facility] Address [address] [place] [address] Care Team Providers Care Reinforcing Steel Worker Name Role Phone Maribel Fitzpatrick MD Primary Care Provider [phone] Korina Sagastume MD Unavailable [phone] Benny Etienne PA-C Unavailable Nany Carter PA-C Unavailable Encounter Details Date Type Department Care Team Description 06/19/2023 SCAN [facility] Medical [facility] Neurosurgery [place] [address] [phone] Nany Carter PA-C [address] [address] Social History Tobacco Use Types Packs/Day Years Used Date Smoking Tobacco: Never Smokeless Tobacco: Never Sex Assigned at Date Recorded Not on file Job Start Date Occupation Industry Not on file Not on file Not on file documented as of this encounter Plan of Treatment Not on file documented as of this encounter Visit Diagnoses Not on filedocumented in this encounter Care Teams Reinforcing Steel Worker Relationship Specialty Start Date End Date Maribel Fitzpatrick MD [address] [place] [address] PCP - General Internal Medicine 01/08/22 Korina Sagastume MD [address] [address] Surgeon Neurosurgery 06/19/23 Benny Etienne PA-C 175 [facility] [address] [place] [address] Specialist Neurosurgery 06/19/23 Nany Carter PA-C [address] [address] Specialist Neurosurgery 06/19/23 documented as of this encounter
--- OUTSIDE RECORDS SUMMARY | 2025-01-20 12:48 | XMS_ITS | Encounter Summary ---
Author Organization [facility] Address [address] [place] [address] Care Team Providers Care Ethylene Plant Operator Name Role Phone Erica Wu MD Primary Care Provider U Marbiel Gilmore MD Primary Care Provider [phone] Korina Sagastume MD Unavailable [phone] Benny Etienne PA-C Unavailable [phone] Nany Carter PA-C Unavailable [phone] Reason for Visit * Reason Onset Date Comments medication problems 06/15/2018 Encounter Details Date Type Department Care Team Description 06/15/2018 Telephone Adult Medicine - [place] [address] [place] [address] Erica Wu MD medication problems Social History Tobacco Use Types Packs/Day Years Used Date Smoking Tobacco: Never Smokeless Tobacco: Never Sex Assigned at Date Recorded Not on file Job Start Date Occupation Industry Not on file Not on file Not on file documented as of this encounter Miscellaneous Notes * Telephone Encounter - rEica Patterson L.P.N. - 06/15/2018 9:41 AM EDT rx needs clarification on directions,needs to have initial dosing instructions. * Telephone Encounter - Marian Adria - 06/15/2018 9:32 AM EDT What is the name of the medication patient is having a problem with?: Sumatriptan What is the problem?: no direction for dosage Is the patient calling about the problem? NO If the patient is not the caller who is? [facility] Is this a NEW medication?: Yes How long has the patient been taking this medication? No Who prescribed this medication for the patient? Tiarra Gauthier Who is patients PCP?: Dr. Paz Payor: [facility] / Plan: [facility] TYPE II $10/$18 [place] [id number] / Product Type: HMO [id number] documented in this encounter Plan of Treatment Not on file documented as of this encounter Visit Diagnoses Not on filedocumented in this encounter Care Teams Ethylene Plant Operator Relationship Specialty Start Date End Date Erica Wu MD PCP - General Internal Medicine 05/12/1812/10 Maribel Fitzpatrick MD [address] [place] [address] PCP - General Internal Medicine 01/08/22 Korina Sagastume MD [address] [address] Surgeon Neurosurgery 06/19/23 Benny Etienne PA-C [address] [address] Specialist Neurosurgery 06/19/23 Nany Carter PA-C [address] [address] Specialist Neurosurgery 06/19/23 documented as of this encounter
--- OUTSIDE RECORDS SUMMARY | 2025-01-20 12:48 | XMS_ITS | Clinical Summary ---
Author Organization [facility] Address [address] [place] [address] Care Team Providers Care Assistant Research Scientist Name Role Phone Maribel Fitzpatrick MD Primary Care Provider [phone] Korina Sagastume MD Unavailable [phone] Benny Etienne PA-C Unavailable [phone] Nany Carter PA-C Unavailable Allergies Active Allergy Reactions Severity Noted Date Comments No Known Drug Allergies 05/28/2018 Onion 02/25/2019 Throat itching, tongue swelling with white onion Medications Medication Sig Dispensed Refills Start Date End Date Status EPINEPHrine (EPIPEN 2-MALAIKA) 0.3 MG/0.3ML Solution Auto-injector Inject 1 Device as directed as needed (anaphylaxis). Use as directed 2 Each 3 02/25/2019 Active sumatriptan (IMITREX) 50 MG tablet Take 1 tab as needed for headache. May repeat dose once after 2 hours, if needed. Not to exceed 200mg in 24 hours 10 Tablet 0 11/01/2021 Active Multiple Vitamin (Multivitamin Adult) Tab Take 1 Tablet by mouth daily. 0 Active Emgality 120 MG/ML Solution Auto-injector INJECT 1 ML (120 MG) SUBCUTANEOUSLY ONCE FOR 30 DAYS 0 03/04/2023 Active eletriptan (RELPAX) 40 MG tablet Take 1 Tablet by mouth as needed (If symptoms persist or return, may repeat dose after >= 2 hours) for up to 28 days. may repeat in 2 hours if necessary 28 Tablet 0 05/27/2023 Active acetaZOLAMIDE (DIAMOX) 125 MG tablet TAKE 1-2 TABLETS BY MOUTH 3 TIMES DAILY X7 DAYS 0 05/29/2023 Active baclofen (LIORESAL) 10 MG tablet TAKE 1 TO 2 TABLETS BY MOUTH AT BEDTIME FOR 30 DAYS 0 05/29/2023 Active NPMOPAPPUC-OQLW-F AFFEINE 50-325-40 MG OR TABS (FIORICET, ESGIC) per tablet PLEASE SEE ATTACHED FOR DETAILED DIRECTIONS 0 05/29/2023 Active omeprazole (PRILOSEC) 20 MG capsule Take 1 Capsule by mouth daily. 0 05/14/2023 Active Omeprazole 20 MG Tab EC 0 06/03/2023 Active ondansetron (ZOFRAN) 4 MG tablet TAKE 1 TABLET BY MOUTH EVERY 8 HOURS NEEDED FOR NAUSEA AND VOMITING 0 05/31/2023 Active rizatriptan (MAXALT) 10 MG tablet PLEASE SEE ATTACHED FOR DETAILED DIRECTIONS 0 04/18/2023 Active sumatriptan (IMITREX) 100 MG tablet TAKE ONE-HALF TO ONE TABLET BY MOUTH AT ONSET OF MIGRAINE HEADACHE,MAY REPEAT IN 2 HOURS NEEDED MAX 2 TABLETS PER DAY) 0 05/29/2023 Active loratadine (CLARITIN) 10 MG tablet Take 1 Tablet by mouth daily. 0 Active Active Problems Problem Noted Date Hemangioma of spine, L3 06/19/2023 Last Assessment & Plan: Patient was admitted to [facility] overnight 05/30/2023 for right-sided body weakness, when in CAT scan had a syncopal episode (likely vasovagal). She had a thorough workup of the brain and entire spine, no significant findings. Of note she had incidental finding of L3 hemangioma on lumbar CT, also noted on previous lumbar MRI October 2022. She had the lumbar MRI ordered after coming back from [facility] with low back pain and GI symptoms, was treated for a GI infection and symptoms resolved. 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 She also had lumbar MRI October 2022 that shows a tall but dark L5-S1 disc with mild bulging, no nerve root compression or central stenosis, L3 hemangioma noted as well. I also reviewed her prior brain imaging at [facility] and [facility], CTs cervical spine and thoracic spine [facility]. I reviewed imaging with patient on the [...] questions or concerns. Obesity (BMI 35.0-39.9 without comorbidi ty) 12/10/2018 Migraine 05/28/2018 Overview: Wihtout aura Immunizations Name Administration Dates Next Due COVID-19 (Moderna) 03/11/2021,06/24/2020, 021 Influenza (> 6 Months) 12/19/2020,12/01/2019 Influenza Flu (PT Reported) 12/30/2022, 2 TD ([employer] CHILDREN) 02/08,02/29/2020,05/09/2009 Td, Adsorbed, Preservative F ree, Adult Use, Lf Unspecified 02/29/2020 Family History Medical History Relation Name Comments Diabetes Father Asthma Mother Hypertension Mother environmental allergies Mother CA Breast Other mat cousin age 40 Hypertension Sister Relation Name Status Comments Father Mother Other mat cousin age 40 Alive Sister Social History Tobacco Use Types Packs/Day Years Used Date Smoking Tobacco: Never Smokeless Tobacco: Never Tobacco Cessation:Counseling Given: Not Answered Sex Assigned at Date Recorded Not on file Job Start Date Occupation Industry Not on file Not on file Not on file Last Filed Vital Signs Vital Sign Reading Time Taken Comments Blood Pressure 136/80 05/27/2023 10:07 AM EDT Pulse 82 05/27/2023 10:07 AM EDT Temperature 36.6 C (97.8 F) 05/27/2023 10:07 AM EDT Respiratory Rate 18 10/31/2022 10:57 AM EDT Oxygen Saturation 98% 02/25/2019 8:57 AM EST Inhaled Oxygen Concentration - - Weight 99.8 kg (220 lb) 06/19/2023 11:32 AM EDT Height 170.2 cm (5' 7 ) 06/19/2023 11:32 AM EDT Body Mass Index 34.46 06/19/2023 11:32 AM EDT Plan of Treatment Health Maintenance Due Date Last Done Comments BMI CHECK/ADVISE 03/10/2024 05/27/2023, , 03/28/2023 (Completed), Additional history exists MAMMOGRAM 08/06/2024 08/07/2023, 07/08, 07/10/2021, Additional history exists Covid-19 Vaccine ( season) 2024 03/11/2021, 06/24/2020, 05/25/2020 INFLUENZA (#1) 2024 12/30/2022, 11/0 05/2021, 12/19/2020, Additional history exists CERVICAL CANCER SCREENING 12/19/2024 12/19/2021 BASELINE HEALTH EXAM 40-64 03/28/202503/28, 03/28/2023, 10/31/2022, Additional history exists CHOLESTEROL SCREENING 03/28/2028 03/28/2023 , 10/31/2022, 03/27/2022, Additional history exists DTAP/TDAP/TD (1 - Tdap) 01/27/2030 02/29/20 20, 02/29/2020, 02/29/2020, Additional history exists Postponed from 03/01/2020 (Other Circumstances) PNEUMOCOCCAL VACCINE FOR HIGH RISK PATIENTS (#1) 01/21/2045 Care Teams Assistant Research Scientist Relationship Specialty Start Date End Date Maribel Fitzpatrick MD [address] [place] [address] PCP - General Internal Medicine 01/08/22 Korina Sagastume MD [address] [address] Surgeon Neurosurgery 06/19/23 Benny Etienne PA-C [address] [address] Specialist Neurosurgery 06/19/23 Nany Carter PA-C [address] [address] Specialist Neurosurgery 06/19/23
[2025-01-20 13:34] LABS: Appearance Urine Turbid; Glucose Urine UA Negative (Negative); PH 5.5 (5.0-9.0); Specific Gravity - Urine 1.025 (1.005-1.025); UMIC TRIGGER UACC YES
== END 2025-01-20 10:25 | disposition home or self-care (01) ==
LOC: HO.HKASLDS 10:24
PROVIDERS: PCP Internal Medicine; Visit Provider Student in an Organized Health Care Education/Training Program
DX: M32.9 Systemic lupus erythematosus, unspecified (principal)
CPT/HCPCS: 81001